=== PATIENT | female | born 1950 | race Caucasian/White ===

== ENCOUNTER → 2016-11-20 16:37 | Outpatient (CLI) | payer MEDICARE ==
[2012-07-09 20:28] VITALS: BMI 22.4
[~2016-11-20 16:37] MED LIST: BAYER ASPIRIN325 MG PO; LIPITOR40 MG PO; LISINOPRIL10 MG PO; NORVASC10 MG PO; PROZAC20 MG PO
[2016-11-25 11:19] VITALS: BMI 23.3
== END | disposition home or self-care (01) ==
LOC: D.MAMMO 08:15
DX: Z12.31 Encounter for screening mammogram for malignant neoplasm of breast (principal)

== ENCOUNTER 2016-11-25 09:27 | Day surgery (SDC) | payer MEDICARE ==
[~2016-11-25] VITALS: Ht 167.6 cm; Wt 65.5 kg
[2016-11-25] MEDS ORDERED: NORVASC10 MG PO (11:14)
[2016-11-25] MEDS ORDERED: LISINOPRIL10 MG PO (11:14)
[2016-11-25] MEDS ORDERED: PROZAC20 MG PO (11:14)
[2016-11-25] MEDS ORDERED: LIPITOR40 MG PO (11:14)
[2016-11-25] MEDS ORDERED: BAYER ASPIRIN325 MG PO (11:15)
[2016-11-25 11:19] VITALS: BP 119/56; Ht 167.6 cm; Wt 65.5 kg
[2016-11-25 12:14] LABS: BASOPHILS 0.1 % (0.0-2.0); EOSINOPHILS 0.6 % (0-7); HEMATOCRIT 39.2 % (36.0-48.0); HEMOGLOBIN 13.3 g/dL (12-16); LYMPHOCYTES 40.8 % (15-50); MCH 31.4 pg (26.0-34.0); MCHC 33.9 g/dL (31.0-37.0); MCV 92.7 fL (80.0-100.0); MEAN PLATELET VOLUME 11.6 fL (7.4-10.4); MONOCYTES 5.2 % (2-11); NEUTROPHILS 53.3 % (40-80); PLATELET COUNT 211 10x3/uL (130-400); RBC 4.23 10x6/uL (4.00-5.40); RDW 13.7 % (11.5-14.5)
[2016-11-25 12:28] LABS: ANION GAP 16.6 mmol/L (8-16); CALCIUM 9.3 mg/dL (8.5-10.1); POTASSIUM - SERUM 4.6 mmol/L (3.5-5.1)
--- NOTE | 2016-11-25 15:18 | NUR ---
1500 UP TO BATHROOM , IV DC WITH CATHER TIP INTACT
--- NOTE | 2016-12-05 09:40 | OP ---
PATIENT NAME: JOHNNY VALENCIA MEDICAL RECORD: [id number] :46 LOCATION:D.OPS ADMISSION DATE: SURGEON: NADEEM COTTER MD DATE OF OPERATION: 11/25/2016 PREOPERATIVE DIAGNOSIS: Desires screening colonoscopy. POSTOPERATIVE DIAGNOSES: Desires screening colonoscopy with 3 sessile polyps ranging in size from 9 mm-1.2 cm. PROCEDURES: 1. Total colonoscopy to cecum. 2. Hot biopsy forceps polypectomy times 3. SURGEON: Nadeem Cotter MD ASSISTANT CHIEF NURSING OFFICER: None. BLOOD LOSS: Minimal. ANESTHESIA: IV sedation. COMPLICATIONS: None. The risks, possible complications and alternatives to procedure were explained to the patient. She elects to proceed. ENDOSCOPIC COURSE: The patient was conveyed to the endoscopy suite electively on 11/25/2016. IV sedation was induced by the anesthesia staff. The patient was placed in the Brannon position. A digital rectal examination was performed. A colonoscope was inserted through the anus. It was easily advanced to the cecum. Upon withdrawal, I irrigated and aspirated extensively. Three polyps were removed. One of these was a periappendiceal polyp. These were all removed utilizing the hot biopsy forceps polypectomy technique. I dragged the folds. The pullback was greater than a 14-minute pullback. A retroflexed view was obtained in the rectum. I then unretroflexed the scope and removed it under direct vision. I will see the patient in my office in 2-3 weeks. One of these unlikely is going to be an adenomatous polyp and I would plan for a re-colonoscopy again in a year as a surveillance colonoscopy and then every 3 years. TRANSINT:[id number] Voice Confirmation ID: [id number] DOCUMENT ID: [id number] ANDEEM COTTER MD at 0940 CC: ALCIDES ANDERSON MD [id number] DICTATION DATE: 11/25/16 1615 MACHINE OPERATOR FARMWORKER: 11/25/168 [facility] 11/25/[address] [address]
--- NOTE | 2016-12-05 09:40 | HP ---
PATIENT: JOHNNY VALENCIA MEDICAL RECORD: [id number] ACCOUNT: [id number] [facility] ADMISSION DATE: 11/25/16 HISTORY AND PHYSICAL EXAMINATION CHIEF COMPLAINT: Desires screening colonoscopy. HISTORY OF PRESENT ILLNESS: The patient has no abdominal pain. No rectal bleeding. She desires screening colonoscopy. ALLERGIES: No known drug allergies. HOME MEDICATIONS: Prozac, lisinopril, Lipitor, aspirin, and Norvasc. SOCIAL HISTORY: Smoker. PAST MEDICAL AND SURGICAL HISTORY: COPD, hypertension, CVA, gastroesophageal reflux, bilateral tubal ligation and skin cancer removal. PHYSICAL EXAMINATION: GENERAL: The patient does not appear acutely ill. She does not appear chronically ill. VITAL SIGNS: Reviewed. HEAD: External ears appear normal. EYES: Extraocular movements are intact. NECK: Trachea is midline. CHEST: No intercostal retractions. PULMONARY: Nonlabored, no stridor. ABDOMEN: Nontender. IMPRESSION: Desires screening colonoscopy. PLAN: Screening colonoscopy. TRANSINT:[id number] Voice Confirmation ID: [id number] DOCUMENT ID: [id number] KYLAH COTTER MD at 0940 CC: ALCIDES ANDERSON MD [id number] DICTATION DATE: 11/25/16 1313 CODING CONSULTANT: 11/25/16 1441 [facility] 11/25/16 [address] [place] [address]
== END 2016-11-25 15:25 | disposition home or self-care (01) ==
LOC: D.OPS 09:27
PROVIDERS: Anesthesiology
DX: Z12.11 Encounter for screening for malignant neoplasm of colon (principal); D12.3 Benign neoplasm of transverse colon; D36.7 Benign neoplasm of other specified sites; K63.5 Polyp of colon; Z79.82 Long term (current) use of aspirin; Z79.899 Other long term (current) drug therapy; F17.200 Nicotine dependence, unspecified, uncomplicated; J44.9 Chronic obstructive pulmonary disease, unspecified; I10 Essential (primary) hypertension; Z86.73 Personal history of transient ischemic attack (TIA), and cerebral infarction without residual deficits; K21.9 Gastro-esophageal reflux disease without esophagitis

== ENCOUNTER → 2016-12-30 16:11 | Outpatient (CLI) | payer MEDICARE ==
[2016-11-25 11:19] VITALS: BMI 23.3
== END | disposition home or self-care (01) ==
LOC: D.MAMMO 09:00
DX: R92.8 Other abnormal and inconclusive findings on diagnostic imaging of breast (principal)

== ENCOUNTER → 2018-01-19 16:44 | Outpatient (CLI) | payer MEDICARE ==
[2016-11-25 11:19] VITALS: BMI 23.3
== END | disposition home or self-care (01) ==
LOC: D.MAMMO 08:15
DX: Z12.31 Encounter for screening mammogram for malignant neoplasm of breast (principal)

== ENCOUNTER 2019-02-15 19:00 | Outpatient (CLI) | payer MEDICARE ==
[2016-11-25 11:19] VITALS: BMI 23.3
== END 2019-02-15 23:59 | disposition home or self-care (01) ==
LOC: D.MAMMO 19:00
PROVIDERS: ATTEND Clinical Nurse Specialist Family Health
DX: Z12.31 Encounter for screening mammogram for malignant neoplasm of breast (principal)

== ENCOUNTER 2019-03-22 06:34 | Day surgery (SDC) | payer MEDICARE ==
[~2019-03-22] VITALS: Ht 167.6 cm; Wt 65.9 kg
[2019-03-22 07:06] LABS: BASOPHILS 0.2 % (0-2); EOSINOPHILS 1.5 % (0-7); HEMATOCRIT 39.3 % (36.0-48.0); HEMOGLOBIN 13.4 g/dL (12-16); IMMATURE GRANULOCYTES 0.1 % (0-5); LYMPHOCYTES 46.1 % (15-50); MCH 32.1 pg (26.0-34.0); MCHC 34.1 g/dL (31.0-37.0); MEAN PLATELET VOLUME 10.5 fL (7.4-10.4); MONOCYTES 7.8 % (2-11); NEUTROPHILS 44.3 % (40-80); RBC 4.18 10x6/uL (4.00-5.40); RDW 13.9 % (11.5-14.5); WBC 8.1 10x3/uL (4.8-10.8)
[2019-03-22 07:23] LABS: ANION GAP 17.6 mmol/L (8-16); CALCIUM 9.7 mg/dL (8.5-10.1); CARBON DIOXIDE 21.9 mmol/L (21.0-32.0); POTASSIUM - SERUM 4.5 mmol/L (3.5-5.1)
[2019-03-22 07:28] VITALS: BP 130/52; Ht 167.6 cm; Wt 65.9 kg
[2019-03-22 07:28] LABS: PLATELET COUNT 271 10x3/uL (130-400)
[2019-03-22] MEDS ORDERED: NIASPAN500 MG PO (07:35)
--- NOTE | 2019-03-22 11:05 | NUR ---
[address] COTTER. PROCEDURE FINDINGS DISCUSSED WITH PATIENT & . Rafael STEVENSON R.N.
--- NOTE | 2019-03-22 11:27 | NUR ---
1125 SERVED FULL LIQUID DIET. NO COMPLAINTS OF NAUSEA. Rafael STEVENSON R.N.
--- NOTE | 2019-03-22 12:51 | NUR ---
1210 UP TO BATHROOM. VOIDED. IV DC'ED WITH CATH INTACT BY Maurice SNOW R.N. PT DRESSING. Rafael STEVENSON R.N. 1215 DRESSED. AWAKE & ALERT. GIVEN DISCHARGE INFORMAION INCLUDING: RX: NEXIUM, SHEET LISTING NSAIDS TO AVOID, MED REC, GERD REFLUS CIET SHEET, SHEET LISSTING FOODS HIGH IN [place], & [facility] POST ENDOSCOPY D/C SHEET. TO PRIVATE CAR PER WHEELCHAIR BY VOLUNTEER. HOME WITH MALE GROUND EQUIPMENT MECHANIC. Rafael STEVENSON R.N.
--- NOTE | 2019-03-22 13:55 | OP ---
PATIENT NAME: JOHNNY VALENCIA MEDICAL RECORD: [id number] :46 LOCATION:D.OPS ADMISSION DATE: SURGEON: NADEEM COTTER MD DATE OF OPERATION: 03/22/2019 PREOPERATIVE DIAGNOSES: 1. Epigastric abdominal pain. 2. History of colon polyps, in need of surveillance colonoscopy. POSTOPERATIVE DIAGNOSES: 1. Epigastric abdominal pain. 2. History of colon polyps, in need of surveillance colonoscopy. 3. Several bleeding fundal and antral ulcers in the stomach. 4. Numerous gastric erosions in the antrum. 5. Moderate duodenitis with erosions. 6. Rule out Molina esophagus. 7. Moderately sized hiatal hernia. 8. Two colon polyps, both sessile, both less than 8 mm in size. PROCEDURES: 1. Esophagogastroduodenoscopy with antral and distal esophageal biopsies. 2. Total colonoscopy to cecum. 3. Hot biopsy forceps polypectomies times 2. SURGEON: Nadeem Cotter MD OTOLOGIST: None. BLOOD LOSS: Minimal. ANESTHESIA: IV sedation. COMPLICATIONS: None. The risks, possible complications, and alternatives to the procedure were explained to the patient. She elects to proceed. Discussion specifically included bleeding. The patient does take aspirin, but I think she can resume her aspirin after the procedure. ENDOSCOPIC COURSE: The patient was conveyed to the endoscopy suite electively on 03/22/2019. IV sedation was induced by the anesthesia staff. A bite block was inserted. A gastroscope was inserted into the mouth. It was advanced easily into the hypopharynx. The esophagus was easily intubated as were the stomach and duodenum. Upon withdrawal, retroflexed and angulus views were obtained. Antral biopsies were obtained. Distal esophageal biopsies were obtained. The patient was then turned 180 degrees. She was placed in the Brannon position. A digital rectal examination was performed. A colonoscope was inserted through the anus. It was easily advanced to the cecum. I slowly withdrew the endoscope. I irrigated and aspirated extensively. A combination of normal imaging and narrow band imaging were utilized. The pullback was greater than 18-minute pullback. Two hot biopsy forceps polypectomies were performed. A OPERATIVE REPORT [id number] JOHNNY VALENCIA retroflexed view was obtained in the rectum. I then unretroflexed the scope and removed it under direct vision. I will see the patient socially as I date her daughter and so there is no need for her to follow up with me in the office. I will be able to convey the pathology findings to her directly. TRANSINT:[id number] Voice Confirmation ID: [id number] DOCUMENT ID: [id number] NADEEM COTTER MD at 1355 CC: ALCIDES ANDERSON [id number] DICTATION DATE: 03/22/19 1234 EXCHANGE TELLER: 03/22/19 1246 [facility] 03/22/19 [address] [place] [address]
--- NOTE | 2019-03-22 13:55 | HP ---
PATIENT: JOHNNY VALENCIA MEDICAL RECORD: [id number] ACCOUNT: [id number] [facility] : 46 ADMISSION DATE: 03/22/19 PCP: ALCIDES ANDERSON MD HISTORY AND PHYSICAL EXAMINATION PRINCIPAL DIAGNOSIS: History of colon polyps. HISTORY OF PRESENT ILLNESS: The patient has a history of colon polyps including an appendiceal orifice, tubular adenoma, and a hepatic flexure tubular adenoma. She also has epigastric abdominal pain. I am going to plan for an EGD as well as a surveillance colonoscopy. No dysphagia. No odynophagia. SOCIAL HISTORY: She is a smoker. PAST MEDICAL AND SURGICAL HISTORY: COPD, tubal ligation, hypertension, history of CVA, history of gastroesophageal reflux, history of skin cancer removal. ALLERGIES: No known drug allergies. PHYSICAL EXAMINATION: GENERAL: The patient does not appear acutely ill. She does not appear chronically ill. VITAL SIGNS: Reviewed. EARS: External ears appear normal. EYES: Extraocular movements are intact. NECK: Trachea is midline. CHEST: No intercostal retraction. IMPRESSION: 1. Epigastric abdominal pain. 2. History of colon polyps, in need of surveillance colonoscopy. PLAN: EGD and colonoscopy. TRANSINT:[id number] Voice Confirmation ID: [id number] DOCUMENT ID: [id number] KYLAH COTTER MD at 1355 CC: ALCIDES ANDERSON [id number] DICTATION DATE: 03/22/19 0939 REAL ESTATE ASSET MANAGER: 03/22/19 0950 [facility] 03/22/19 [id number] [place] [address]
== END 2019-03-22 12:15 | disposition home or self-care (01) ==
LOC: D.OPS 06:34
PROVIDERS: Anesthesiology; ATTEND Surgery
DX: Z12.11 Encounter for screening for malignant neoplasm of colon (principal); K25.4 Chronic or unspecified gastric ulcer with hemorrhage; K29.80 Duodenitis without bleeding; K44.9 Diaphragmatic hernia without obstruction or gangrene; K25.9 Gastric ulcer, unspecified as acute or chronic, without hemorrhage or perforation; K63.5 Polyp of colon; Z86.010 Personal history of colon polyps; F17.200 Nicotine dependence, unspecified, uncomplicated; J44.9 Chronic obstructive pulmonary disease, unspecified; I10 Essential (primary) hypertension; K21.9 Gastro-esophageal reflux disease without esophagitis; Z86.73 Personal history of transient ischemic attack (TIA), and cerebral infarction without residual deficits; Z01.812 Encounter for preprocedural laboratory examination

== ENCOUNTER 2019-05-18 10:05 | Emergency (ER) | payer MEDICARE ==
[~2019-05-18] VITALS: Ht 167.6 cm; Wt 65.9 kg
[~2019-05-18 10:05] MED LIST changes: +NIASPAN500 MG PO
[2019-05-18 10:09] VITALS: Ht 167.6 cm; Wt 65.9 kg
[2019-05-18] MEDS ORDERED: NEXIUM20 MG PO (10:11)
[2019-05-18 11:11] LABS: ALBUMIN 3.5 g/dL (3.4-5.0); ANION GAP 15.6 mmol/L (8-16); BILIRUBIN - TOTAL 0.28 mg/dL (0.2-1.3); CALCIUM 9.6 mg/dL (8.5-10.1); CARBON DIOXIDE 21.5 mmol/L (21.0-32.0); POTASSIUM - SERUM 4.1 mmol/L (3.5-5.1); PROTEIN - SERUM 7.4 g/dL (6.4-8.2)
[2019-05-18 11:14] LABS: APPEARANCE CLEAR (CLEAR); BILIRUBIN NEGATIVE (NEGATIVE); COLOR YELLOW (YELLOW); GLUCOSE NEGATIVE (NEGATIVE); KETONE NEGATIVE (NEGATIVE); NITRITE NEGATIVE (NEGATIVE); PROTEIN NEGATIVE (NEGATIVE); UROBILINOGEN NORMAL (NORMAL)
[2019-05-18 11:19] LABS: BASOPHILS 0.3 % (0-2); EOSINOPHILS 1.1 % (0-7); HEMATOCRIT 37.8 % (36.0-48.0); HEMOGLOBIN 13.2 g/dL (12-16); IMMATURE GRANULOCYTES 0.1 % (0-5); LYMPHOCYTES 49.5 % (15-50); MCHC 34.9 g/dL (31.0-37.0); MCV 91.5 fL (80.0-100.0); MEAN PLATELET VOLUME 11.4 fL (7.4-10.4); MONOCYTES 6.9 % (2-11); NEUTROPHILS 42.1 % (40-80); RBC 4.13 10x6/uL (4.00-5.40); RDW 14.6 % (11.5-14.5); WBC 7.4 10x3/uL (4.8-10.8)
[2019-05-18 11:21] LABS: PLATELET COUNT 204 10x3/uL (130-400)
[2019-05-18 12:08] VITALS: BP 161/73
== END 2019-05-18 11:55 | disposition home or self-care (01) ==
LOC: D.ER 10:05
PROVIDERS: Emergency Medicine
DX: R42 Dizziness and giddiness (principal)

== ENCOUNTER → 2019-06-16 09:02 | Outpatient (CLI) | payer MEDICARE ==
[2019-05-18 10:09] VITALS: BMI 23.4
[~2019-06-16 09:02] MED LIST changes: +NEXIUM20 MG PO; +PLAVIX75 MG PO
== END | disposition home or self-care (01) ==
LOC: D.HCCARDIO 09:02
PROVIDERS: ATTEND Internal Medicine Cardiovascular Disease
DX: R06.02 Shortness of breath (principal)

== ENCOUNTER 2019-07-07 07:03 | Outpatient (CLI) | payer MEDICARE ==
[~2019-07-07] VITALS: Ht 160 cm; Wt 65.9 kg
--- NOTE | ~2019-07-07 | HEMODYNAMI ---
PATIENT:JOHNNY VALENCIA MEDICAL RECORD: [id number] : 46 LOCATION:[facility] ADMISSION DATE: 07/07/19 Generatedon:07/07/201910:01 Patient name: JOHNNY VALENCIA Patient #: [id number] SSN: DO B: 1950 Date of study: 07/07/2019 Page: Of Hemodynamic Procedure Report Patient Data Patient Demographics Procedure consent was obtained First Name: JOHNNY Gender: Female Last Name: ERIK : 1950 Middle Initial: YSABEL Age: 68 year(s) Patient #: [id number] Race: Additional ID: [id number] Contact details Address: [address] [place] [address] State: [place] City: [place] Zip code: [address] Past Medical History Allergies: No known allergies Admission Admission Data Admission Date: 07/07/2019 Admission Time: 7:03 Arrival Date: 07/07/2019 Arrival Time: 0:00 Admit Source: Other Insurance Payor: Medicare Height (in.): 62.99 BSA: 1.69 (m2) Height (cm.): 160 BMI: 25.78 (kg/m2) Weight (lbs.): 145.51 Weight (kg.): 66 Lab Results Lab Result Date: 07/07/2019 Lab Result Time: 0:00 Biochemistry Name Units Result Min Max BUN mg/dl 29 --(----)-* 7 18 Creatinine mg/dl 1.1 --(--*-)-- 0.6 1.3 eGFR ml/min 52 *-(----)-- 90 120 NONAFRICAN CBC Name Units Result Min Max Hematocrit % 42.1 --(*---)-- 42 54 Hemoglobin g/dl 14.1 --(*---)-- 13.5 17.5 Procedure Procedure Types Cath Procedure Diagnostic Procedure [facility] w/Coronaries Aortic Root Angiography Sedation Charges Moderate Sedation up to 30 minutes Procedure Description Procedure Date Procedure Date: 07/07/2019 Procedure Start Time: 9:24 Procedure End Time: 9:57 Procedure Staff Name Function Ganga Soto MD Performing Physician Sue Luke RT Monitor Julianna Vivar RT Scrub Tova Bess RN Nurse Procedure Data Cath Procedure Fluoroscopy Diagnostic fluoroscopy Total fluoroscopy Time: 4.8 time: 4.8 min min Diagnostic fluoroscopy Total fluoroscopy dose: 629 dose: 629 mGy mGy Contrast Material Contrast Material Type Amount (ml) Isovue 300 104 Entry Location Entry Primary Successful Side Size Upsize Upsize Entry Closure Succes sful Closure Location (Fr) 1 (Fr) 2 (Fr) Remarks Device Remarks Femoral Right 5 Fr Exoseal artery Estimated blood loss: 5 ml Diagnostic catheters Device Type Used For End Catheter Placement MULTIPACK JL 4.0 5Fr Procedure catheter MULTIPACK 3DRC 5Fr Procedure catheter MULTIPACK Pigtail 5 Fr Procedure catheter DIAGNOSTIC IM 5Fr Procedure catheter ([id number]) Procedure Complications No complications Procedure Medications Medication Administration Route Dosage Oxygen etCO2 Nasal cannula 2 l/min Lidocaine 2% added to field 20 Heparin Flush Bag added to field 2 bags (1000units/500ml NS) 0.9% NaCl I.V. 100 ml/hr Versed I.V. 1 mg Fentanyl I.V. 50 mcg Versed I.V. 1 mg Fentanyl I.V. 50 mcg Radial Cocktail added to field 1 syringe (Verapamil 2mg/Nitro 400mcg/Heparin 1500units) Hemodynamics Rest BSA: 1.69 (m2) HGB: 14.1 (g/dl) O2 Consumption: Estimated: 145.11 (ml/min) O2 Co nsumption indexed: Estimated:85.86 (ml/min/m) Heart Rate: 53 (bpm) Pressure Samples Time Site Value (mmHg) Purpose Heart Use Rate(bpm) 9:45 LV 110/-1,14 Snapshot 59 9:45 LV 128/-3,20 Snapshot 63 9:46 AO 102/39(61) Pullback 61 9:46 LV 118/0,12 Pullback 61 Gradients Valve Time Site 1 Site 2 Mean SEP/DFP Peak To Heart Use (mmHg) (sec/min) Peak Rate (mmHg) (bpm) Aortic 9:46 LV AO 13 20 16 61 118/0,12 102/39(61) Calculations Valve P-P Mean Valve Index Valve Source Name Gradient Area Flow (cm2) Aortic 16 13 16 13 Snapshots Pre Cath Intra NCS Post Cath Vital Signs Time Heart Resp SPO2 etCO2 NIBP (mmHg) Rhythm Pain Sedation Rate (ipm) (%) (mmHg) Status Level (bpm) 9:13:09 53 30 99 31 Measuring NSR 0 (11) 10(A) , No pain 9:13:26 51 17 98 30.2 151/67(120) NSR 0 (11) 10(A) , No pain 9:17:42 51 10 96 32.5 105/50(83) NSR 0 (11) 10(A) , No pain 9:21:54 52 10 96 34 97/49(78) NSR 0 (11) 10(A) , No pain 9:26:02 50 12 94 33.2 101/52(75) NSR 0 (11) 9(A) , No pain 9:30:12 52 12 94 34 101/50(83) NSR 0 (11) 9(A) , No pain 9:34:21 50 13 93 34 105/56(80) NSR 0 (11) 9(A) , No pain 9:38:31 51 12 92 34 104/54(73) NSR 0 (11) 9(A) , No pain 9:42:43 57 10 94 35.5 112/53(94) NSR 0 (11) 9(A) , No pain 9:46:57 63 14 94 36.3 108/55(92) NSR 0 (11) 10(A) , No pain 9:51:11 64 12 94 35.5 103/47(80) NSR 0 (11) 10(A) , No pain 9:55:23 65 8 94 0 113/51(87) NSR 0 (11) 10(A) , No pain Medications Time Medication Route Dose Verified Delivered Reason Notes Effectiveness by by 9:11:48 Oxygen etCO2 2 l/min Ganga Buffie used for Nasal Charles Bess RN procedure cannula 9:11:55 Lidocaine 2% added 20ml Ganga Ganga for local to vial Charles Soto MD anesthetic field 9:12:01 Heparin Flush added 2 bags Ganga Ganga used for Bag to Charles Soto MD procedure (1000units/500ml field NS) 9:12:10 0.9% NaCl I.V. 100 Ganga Buffie Per ml/hr Charles Bess RN physician 9:14:35 Radial Cocktail added 1 Ganga Buffie not used, (Verapamil to syringe Charles Bess RN femoral 2mg/Nitro field access 400mcg/Heparin obtained. 1500units) 9:17:10 Versed I.V. 1 mg Ganga Buffie for Charles Bess RN sedation 9:17:15 Fentanyl I.V. 50 mcg Ganga Buffie for Charles Bess RN sedation 9:22:09 Versed I.V. 1 mg Ganga Buffie for Charles Bess RN sedation 9:22:13 Fentanyl I.V. 50 mcg Ganga Buffie for Charles Bess RN sedation Procedure Log Time Note 8:46:33 Informed consent obtained and on chart 8:46:58 Procedure Status Elective Heart Cath (OP). 8:47:01 Julianna Vivar RT(R) sent for patient. Start room use. 8:47:02 Time tracking: Regular hours (M-F 7:00 - 5:00) 8:47:05 Plan of Care:Hemodynamics will remain stable., Cardiac rhythm will remain stable., Comfort level will be maintained., Respiratory function will remain adequate., Patient/ family verbilizes understanding of procedure., Procedure tolerated without complication., Recovers from procedure without complications.. 8:47:13 H&P Date Dictated: 06/07/2019 Within 30 days and on chart., H&P Addendum completed by physician on day of procedure. (MUST COMPLETE FOR ALL OUTPATIENTS). 8:53:09 Patient allergic to No known allergies 8:54:01 Patient Weight : 145.51 lbs 8:54:10 Arrival Date: 07/07/2019 12:00:00 AM 8:55:26 Lab Result : BUN 29 mg/dl 8:55:26 Lab Result : eGFR NONAFRICAN 52 ml/min 8:55: Lab Result : Creatinine 1.1 mg/dl 8:55: Lab Result : Hemoglobin 14.1 g/dl 8:55:26 Lab Result : Hematocrit 42.1 % 9:01:15 Risk of Mortality: <.1 9:01:17 Risk of blood transfusion: .6 9:01:22 Risk of ZACKARY: 1 9:01:37 Patient received from Pre/Post Procedure Room to [facility] Alert and oriented. Tansferred to table in Supine position. 9::38 Warm blankets applied, and janie hugger turned on for patient comfort. 9::39 Correct patient and procedure confirmed by team. 9::39 ECG and BP/O2 sat monitors applied to patient. 9:11:20 Vital chart was started 9:: Baseline sample Acquired. ::24 Rhythm: sinus bradycardia :: Full Disclosure recording started :: Pre-procedure instructions explained to patient. :: Pre-op teaching completed and patient verbalized understanding. 9:11:30 Family in patients room. 9::31 Patient NPO since Midnight. 9:11:33 Is the patient allergic to Iodine/contrast media? No. 9::39 Is patient on blood thinner?No 9:11:45 ACC The patient was administered the following blood thiners within the last 24 hours: ACCAspirin 9:11:46 Patient diabetic? No. 9:11:48 Oxygen 2 l/min etCO2 Nasal cannula was administered by Tova Bess RN; used for procedure; Verbal order read back and verified. 9:11:51 Patient not . Patient is over age 55. 9:11:55 Lidocaine 2% 20ml vial added to field was administered by Ganga Soto MD; for local anesthetic; Verbal order read back and verified. 9:11:58 Previous problem with sedation/anesthesia? No ? 9:11:59 Snore? Yes 9:12:00 Sleep apnea? No 9:12:01 Heparin Flush Bag (1000units/500ml NS) 2 bags added to field was administered by Ganga Soto MD; used for procedure; Verbal order read back and verified. 9:12:01 Deviated septum? No 9:12:02 Opens mouth fully? Yes 9:12:08 Sticks out tongue? Yes 9:12:10 0.9% NaCl 100 ml/hr I.V. was administered by Tova Bess RN; Per physician; Verbal order read back and verified. 9:12:12 Airway obstruction? Yes COPD 9:12:19 Dentures? No ? 9:12:26 Pre procedure: right dorsailis pedis pulse 1+ Palpable, but thready & weak; easily obliterated 9:12:29 Modified Gaetano's test Ulnar < 7 seconds 9:12:31 Patient pain scale 0/10 ?. 9:12:40 IV patent on arrival in left hand with 0.9% NaCl at [facility]. 9:12:44 Lab results completed and on chart. 9:13:09 Right Radial & Right Groin area was prepped with chlora-prep and draped in sterile fashion 9:13:09 Alarms reviewed by R. N. 9:13:10 Sharps counted by scrub and verified by R.N. 9:13:14 Use device set Radial Dx or PCI 9:13:15 ACIST Syringe ([id number]) opened to sterile field. 9:13:16 Bag Decanter (2002S) opened to sterile field. 9:13:16 ACIST Hand Control (89686) opened to sterile field. 9:13:16 ACIST Manifold (65338) opened to sterile field. 9:13:17 Tegaderm 4 x 4 (1626W) opened to sterile field. 9:13:18 Medline Cath Pack ([id number]) opened to sterile field. 9:13:20 MBraBenjamin's Desk Wrist Support ([id number]) opened to sterile field. 9:13:20 NEEDLE Cook 21G 4cm Radial ([id number]) opened to sterile field. 9:13:23 SHEATH 6FR RAIN ([id number]) opened to sterile field. 9:14:35 Radial Cocktail (Verapamil 2mg/Nitro 400mcg/Heparin 1500units) 1 syringe added to field was administered by Tova Bess RN; ; not used, femoral access obtained. Verbal order read back and verified. 9:16:02 Patient Height : 62.99 inches 9:16:05 Admit Source: Other 9:16:13 Insurance Payor : Medicare 9:16:45 --------ALL STOP TIME OUT------ 9:16:45 Final Timeout: patient, procedure, and site verified with staff and physician. All members of the team are in agreement. 9:16:45 Final Timeout: patient, procedure, and site verified with staff and physician. All members of the team are in agreement. 9:16:47 Right Radial & Right Groin site verified by team. 9:16:51 Fire Safety Assessment: A--An alcohol-based skin anteseptic being used preoperatively., C--Open oxygen or nitrous oxide is being used., D--An ESU, laser, or fiber-optic light is being used. 9:16:54 Physical assessment completed. ASA score P 3 - A patient with severe systemic disease as per Ganga Soto MD. 9:16:57 2) 60-89 Mildly reduced kidney function, and other findings (as for stage 1) point to kidney disease. 9:17:00 Maximum allowable contrast dose (3.7 X eGFR X 0.75)144 ml. 9:17:04 Sedation plan: IV Moderate Sedation Medication:Versed, Fentanyl 9:17:10 Versed 1 mg I.V. was administered by Tova Bess RN; for sedation; Verbal order read back and verified. 9:17:15 Fentanyl 50 mcg I.V. was administered by Tova Bess RN; for sedation; Verbal order read back and verified. 9:18:29 ACC Patient presents with Stable Angina CCS Anginal Class 2--Slight limitation of ordinary activity. 9:19:06 ACCPatient has been prescribed/administered the following anti-anginal medication within the last 2 weeks: ANTOINE-Inhibitor 9:20:33 Stress Test: yes; abnormal ANTERIOR, APICAL AND INFERIOR 9:20:46 Zero performed for pressure channel P1 9:22:09 Versed 1 mg I.V. was administered by Tova Bess RN; for sedation; Verbal order read back and verified. 9:22:13 Fentanyl 50 mcg I.V. was administered by Tova Bess RN; for sedation; Verbal order read back and verified. 9:24:37 Procedure started. 9:24:46 Local anesthetic to right radial artery with Lidocaine 2% by Ganga Soto MD.INITIAL ACCESS ONLY 9:29:38 UNABLE TO GAIN RADIAL ACCESS. WILL PROCEED TO GROIN 9:29:44 Local anesthetic to right femoral artery with Lidocaine 2% by Ganga Soto MD.ADDITIONAL ACCESS 9:29:51 SHEATH 5FR [place] ([id number]) opened to sterile field. 9:30:04 Use device set Multipack Set 9:30:05 DIAGNOSTIC Multipack 5Fr catheter set ([id number]) opened to sterile field. 9:37:48 A 5 Fr sheath was inserted into the Right Femoral artery 9:38:44 A MULTIPACK JL 4.0 5Fr catheter was advanced over the wire and used for Procedure. 9:39:46 LCA angiography performed. 9:41:37 Catheter exchanged over wire. 9:41:46 A MULTIPACK 3DRC 5Fr catheter was advanced over the wire and used for Procedure. 9:43:15 RCA angiography performed. 9:43:28 ACCDominant side:Co-Dominant 9:43:30 Catheter exchanged over wire. 9:44:26 A MULTIPACK Pigtail 5 Fr catheter was advanced over the wire and used for Procedure. 9:44:57 LV gram done using MAY 9:45:05 Injector settings: Ml/sec: 10, Volume: 20, 9:45:31 LV hemodynamics recorded. 9:45:46 EF : 55 % 9:47:00 Aortic Root visualized 9:47:21 Catheter exchanged over wire. 9:47:33 A DIAGNOSTIC IM 5Fr catheter ([id number]) was advanced over the wire and used for Procedure. 9:50:26 GRULLON angiography performed. 9:50:57 Catheter removed. 9:51:04 EXOSEAL 5Fr (EX500) opened to sterile field. 9:51:47 Sheath removed intact; hemostasis achieved with Exoseal to the Right Femoral artery. 9:51:53 Fluoroscopy time 04.80 minutes. 9:51:57 Fluoroscopy dose: 629 mGy 9:51:57 Flurop Dose total: 629 9:52:03 Dose Area Product 82009 mGy/cm. 9:52:13 Contrast amount:Isovue 300 104ml. 9:52:18 Maximum allowable dose exceeded? No. 9:52:20 Maximum allowable dose exceeded? No. 9:52:23 Procedure ended.(Physican Out) 9:52:39 Sharps counted by scrub and verified by R.N. 9:53:15 Post-op/insertion site Right Femoral artery dressed using a 4 x 4 and Tegaderm. 9:53:18 Post-procedure physical assessment completed. ASA score P 3 - A patient with severe systemic disease as per Ganga Soto MD. 9:53:40 Post procedure rhythm: sinus rhythm 9:53:43 Estimated blood loss: 5 ml 9:53:44 Post procedure instruction explained to patient.Patient verbalizes understanding. 9:53:45 Patient needs reinforcement of post procedure teaching. 9:54:49 Procedure type changed to Cath procedure, Diagnostic procedure, LHC, [facility] w/Coronaries, Aortic Root Angiography, Sedation Charges, Moderate Sedation up to 30 minutes 9:57:30 Procedure and supply charges have been captured, reviewed, submitted and are correct. 9:57:34 Procedure Complication : No complications 9:57:36 Vital chart was stopped 9:57:39 [facility] Findings: MVD- CABG consult 9:57:42 Operative report dictated upon procedure completion. 9:57:42 See physician's report for complete and final results. 9:57:45 Report given to Pre/Post Procedure Room. 9:57:50 Patient transfered to Pre/Post Procedure Room with Bed. 9:57:51 Procedure ended. 9:57:51 Full Disclosure recording stopped 9:57:56 End room use (Document Last) 9:59:21 End room use (Document Last) 9:59:55 End room use (Document Last) Device Usage Item Name Manufacture Quantity Catalog Hospital Part Current Minima l Lot# / Number Charge Number Stock Stock Serial# Code ACIST Acist 1 16411 499147 428023 604335 20 Syringe Medical (82326) Systems Inc Bag Microtek 1 2001S 911344 46085 839832 5 Decanter Medical Inc. (2001S) ACIST Hand Acist 1 30234 650529 846462 812699 5 Control Medical (22306) Systems Inc ACIST Acist 1 54553 956676 542872 840682 5 Manifold Medical (09226) Systems Inc Tegaderm 4 3M 1 1626W 604730 463199 034705 5 x 4 (1626W) Medline Medline 1 [id number] 611565 21971 719975 5 Cath Pack ([id number]) MBrace Advanced 1 140-0250-00 739257 08704 911067 5 Wrist Vascular Support Dynamics ([id number]) NEEDLE Cook Cook Medical 1 N16974 766343 872160 252904 5 21G 4cm Radial (U75538) SHEATH 6FR Cardinal 1 [id number] 200774 1357251 519748 5 [facility] Health (3565316) SHEATH 5FR Terumo 1 [id number] 379333 519506 839399 5 [place] (FXH101) DIAGNOSTIC Cardinal 1 TC6564 535903 56608 555885 30 Multipack Health 5Fr catheter set (UX5520) MULTIPACK Cardinal 1 168684 5 JL 4.0 5Fr Health catheter MULTIPACK Cardinal 1 123625 5 3DRC 5Fr Health catheter MULTIPACK Cardinal 1 415078 5 Pigtail 5 Health Fr catheter DIAGNOSTIC Cardinal 1 [id number] 271809 609388 943511 5 IM 5Fr Health catheter (433468G) EXOSEAL 5Fr Cardinal 1 EX500 329643 971450 510606 10 (EX500) Health Signature Audit [place] Stage Time Signature Unsigned Intra-Procedure 07/07/2019 Sue Luke 9:59:22 AM RT(R) Intra-Procedure 07/07/2019 Tova Bess RN 9:59:55 AM Intra-Procedure 07/07/2019 Gagna Soto MD 10:01:20 AM [facility] [address] [place] [address]
[~2019-07-07 07:03] MED LIST changes: -PLAVIX75 MG PO
[2019-07-07 07:35] VITALS: BP 138/90; BMI 25.7
[2019-07-07 07:55] LABS: HEMATOCRIT 42.1 % (36.0-48.0); HEMOGLOBIN 14.1 g/dL (12-16); MCH 32.3 pg (26.0-34.0); MCHC 33.5 g/dL (31.0-37.0); MCV 96.3 fL (80.0-100.0); MEAN PLATELET VOLUME 10.7 fL (7.4-10.4); RBC 4.37 10x6/uL (4.00-5.40); RDW 14.7 % (11.5-14.5)
[2019-07-07 07:57] LABS: PLATELET COUNT 278 10x3/uL (130-400)
[2019-07-07 08:12] LABS: ANION GAP 14.3 mmol/L (8-16); CARBON DIOXIDE 22.6 mmol/L (21.0-32.0); CHOL - HDL RATIO 2.9 ratio (2.3-4.1); CREATININE - SERUM 1.1 mg/dL (0.6-1.3); LDL-HDL RATIO 1.3 ratio (1.5-3.5)
[2019-07-07 08:14] LABS: POTASSIUM - SERUM 4.9 mmol/L (3.5-5.1)
--- NOTE | 2019-07-07 10:10 | NUR ---
PT ARRIVED BY STRETCHER. PLACED ON MONITOR. ASSESSMENT COMPLETED. DR. RODRIGUEZ AT BEDSIDE SPEAKING WITH PT AND PT'S FAMILY.
--- NOTE | 2019-07-07 10:25 | NUR ---
PT RESTING COMFORTABLY. VSS. RIGHT GROIN DRESSING C/D/I. NO S/S OF HEMATOMA NOTED.
--- NOTE | 2019-07-07 10:56 | NUR ---
US TECH AT BEDSIDE FOR CAROTID DOPPLER STUDY.
--- NOTE | 2019-07-07 11:15 | NUR ---
PT RESTING COMFORTABLY. VSS. RIGHT GROIN DRESSING C/D/I. PT'S HEAD OF BED INC TO 30 DEGREES. TOLERATED WELL. DENIES NAUSEA/PAIN AT THIS TIME. CALL LIGHT WITHIN REACH. FAMILY AT BEDSIDE.
[2019-07-07 11:27] LABS: BASOPHILS 1 % (0-2); EOSINOPHILS 1 % (0-7); LYMPHOCYTES 58 % (15-50); MONOCYTES 6 % (2-11); NEUTROPHILS 32 % (40-80); PLATELET ESTIMATE NORMAL; ROULEAUX OCC
--- NOTE | 2019-07-07 12:00 | NUR ---
RIGHT GROIN DRESSING C/D/I. NO S/S OF HEMATOMA NOTED. DR. UMAÑA AT BEDSIDE SPEAKING WITH PT AND PT'S FAMILY. [facility] OFFICE WILL CALL PT TO LET THEM KNOW OF APPOINTMENT TIME AFTER DISCHARGE. DR. RODRIGUEZ NOTIFIED OF PLAN AND DISCHARGE ORDER OBTAINED.
--- NOTE | 2019-07-07 12:15 | NUR ---
PIV D/C'D WITH CATH TIP INTACT. PT INSTRUCTED TO GET UP AND DRESSED. FAMILY AT BEDSIDE TO ASSIST. AMUBLATED TO RESTROOM AND VOIDED WITHOUT DIFFICULTY.
--- NOTE | 2019-07-07 12:27 | NUR ---
DISCUSSED DISCHARGE INSTRUCTIONS WITH PT AND PT'S FAMILY. THEY VOICED UNDERSTANDING. RIGHT GROIN DRESSING C/D/I. NO S/S OF HEMATOMA NOTED.
[2019-07-07 12:31] VITALS: Ht 160 cm; Wt 65.9 kg
--- NOTE | 2019-07-07 12:35 | NUR ---
PT TAKEN OUT TO VEHICLE BY WHEELCHAIR. NO S/S OF DISTRESS NOTED. ALL BELONGINGS AND PAPERWORK IN HAND.
== END 2019-07-07 12:35 | disposition home or self-care (01) ==
LOC: D.CATH 07:03
PROVIDERS: ATTEND Internal Medicine Cardiovascular Disease
DX: I25.10 Atherosclerotic heart disease of native coronary artery without angina pectoris (principal); R94.30 Abnormal result of cardiovascular function study, unspecified; R06.02 Shortness of breath

== ENCOUNTER → 2019-07-14 07:32 | Outpatient (CLI) | payer MEDICARE ==
[2019-07-07 12:31] VITALS: BMI 25.7
[~2019-07-14 07:32] MED LIST changes: +PLAVIX75 MG PO
== END | disposition home or self-care (01) ==
LOC: D.CT 07:32
PROVIDERS: ATTEND Internal Medicine Cardiovascular Disease
DX: I65.29 Occlusion and stenosis of unspecified carotid artery (principal)

== ENCOUNTER 2019-08-03 08:37 | Inpatient (IN) | payer MEDICARE ==
[~2019-08-03] VITALS: Ht 162.6 cm; Wt 68.1 kg
--- NOTE | ~2019-08-03 | TEE ---
PATIENT:JOHNNY VALENCIA MEDICAL RECORD: [id number] LOCATION:[place] [address] AGE OF PATIENT: 68 ADMISSION DATE: 08/09/19 SEX: F REFERRING PHYSICIAN: INTERPRETING PHYSICIAN: NAHUM LANGSTON MD TRANSESOPHAGEAL ECHOCARDIOGRAM Date: 08/09/19 KERI CHARGE Y INDICATIONS: CABG PREMEDICATIONS: PATIENT'S RESPONSE PROCEDURE DOPPLER MEASUREMENTS: LVIT LA PA RA LVOT RVOT Asc. Ao AV Gradient Peak AV Mean AV Area MV Gradient Peak MV Mean MV Area INTERPRETATION: LVd: 4.0 cm LVs: 2.2 cm LA: 3.8 cm Doppler: 2-D: COLOR FLOW DOPPLER NORMAL SALINE STUDY: MISCELLANOUS: DIAGNOSIS: PLAN: Hematology Oncology Consultant:[facility] Clinical Manager: Godfrey JANE COMMENTS: DATE OF SERVICE: 08/09/2019 Transesophageal echo evaluation of valvular structures during bypass surgery. 1. Left ventricular chamber size is within normal limits. Left ventricular systolic function is normal. Overall ejection fraction estimated at 55%. 2. Left atrium, right atrium, and right ventricle chamber sizes are within normal limits. 3. Valvular structures have normal structure and motion. TRANSESOPHAGEAL ECHOCARDIOGRAM REPORT [id number] JOHNNY VALENCIA 4. Doppler interrogation reveals mild mitral regurgitation, no other valvular insufficiency or stenosis. 5. No evidence of pericardial effusion or left ventricular thrombus. TRANSINT:[id number] Voice Confirmation ID: [id number] DOCUMENT ID: [id number] NAHUM LANGSTON MD CC: [id number] DICTATION DATE: 08/10/19 1107 FUNCTIONAL ANALYST: 08/11/19 0510 ADM IN [place] [address] [place] [address]
[~2019-08-03 08:37] MED LIST changes: -PLAVIX75 MG PO
[2019-08-03 09:20] LABS: BASOPHILS 0.3 % (0-2); EOSINOPHILS 0.9 % (0-7); HEMATOCRIT 40.6 % (36.0-48.0); HEMOGLOBIN 13.4 g/dL (12-16); IMMATURE GRANULOCYTES 0.1 % (0-5); LYMPHOCYTES 42.8 % (15-50); MCH 31.8 pg (26.0-34.0); MCV 96.4 fL (80.0-100.0); MEAN PLATELET VOLUME 10.5 fL (7.4-10.4); MONOCYTES 6.4 % (2-11); NEUTROPHILS 49.5 % (40-80); PLATELET COUNT 239 10x3/uL (130-400); RBC 4.21 10x6/uL (4.00-5.40); RDW 14.7 % (11.5-14.5); WBC 8.7 10x3/uL (4.8-10.8)
[2019-08-03 09:23] LABS: APPEARANCE CLEAR (CLEAR); BILIRUBIN NEGATIVE (NEGATIVE); COLOR YELLOW (YELLOW); GLUCOSE NEGATIVE (NEGATIVE); KETONE NEGATIVE (NEGATIVE); NITRITE NEGATIVE (NEGATIVE); PROTEIN NEGATIVE (NEGATIVE); SPECIFIC GRAVITY 1.015 (1.005-1.020); UROBILINOGEN NORMAL (NORMAL)
[2019-08-03 09:26] LABS: BACTERIA FEW /hpf (NEGATIVE); EPITHELIAL CELLS OCC /hpf (0-5); RED CELLS - URINE RARE /hpf (0-5); WHITE CELLS - URINE 0-5 /hpf (NEGATIVE)
[2019-08-03 09:34] LABS: INR 0.96 (0.85-1.17); PROTIME 12.3 SECONDS (11.6-15.0)
[2019-08-03] MEDS ORDERED: PLAVIX75 MG PO (10:07)
[2019-08-03 10:24] LABS: ANION GAP 15.4 mmol/L (8-16); BILIRUBIN - TOTAL 0.27 mg/dL (0.2-1.3); CALCIUM 9.6 mg/dL (8.5-10.1); CREATININE - SERUM 1.1 mg/dL (0.6-1.3); POTASSIUM - SERUM 4.4 mmol/L (3.5-5.1); PROTEIN - SERUM 7.8 g/dL (6.4-8.2); T4 THYROXIN - FREE 0.97 ng/dL (0.76-1.46); THYROID STIMULATING HORMONE 3.22 uIU/mL (0.36-3.74); URIC ACID 7.8 mg/dL (2.6-7.2)
[2019-08-09] VITALS (48 sets, daily range): BP systolic 93–140; BP diastolic 45–65; BMI 24.2; BMI 25.9
--- NOTE | 2019-08-09 07:00 | NUR ---
ACT QC RESULTS GIVEN TO OR BLOW TORCH OPERATOR. WILL CONTINUE TO MONITOR.
--- NOTE | 2019-08-09 13:39 | NUR ---
NOTEFIED ABOUT BASE EXCESS OF -3.7 NO ORDERS RECIEVED.
--- NOTE | 2019-08-09 16:50 | NUR ---
AT BEDSIDE GAVE FAMILY UPDATE. WILL CONTINUE TO MONITOR.
--- NOTE | 2019-08-09 17:25 | NUR ---
PT EXTUBATED AND SWAN PULLED. WILL CONTINUE TO MONITOR.
[2019-08-09 18:08] LABS: AEROBE ID Final report (())
--- NOTE | 2019-08-09 19:00 | NUR ---
REPORT RECEIVED, SHIFT ASSESSMENT COMPLETE PER FLOW SHEET, PT AWAKE AND ALERT, C/O INCISIONAL PAIN SEE FLOW SHEET, CTx2 C/D/I TO 20CM SUCTION, NO AIR LEAK NOTED, RT IJ CVL C/D/I, L SUBSTERNAL DERECK COMPRESSED, BLE HARVEST SITES, DRSG'S C/D/I, PPP, RT RADIAL ART LINE GOOD WAVEFORM ON CM, VSS, NSR ON CM, WILL CONTINUE TO MONITOR
--- NOTE | 2019-08-09 23:00 | NUR ---
REASSESSMENT COMPLETE PER FLOW SHEET, NO ACUTE CHANGES FROM PRIOR ASSESSMENT, PT RESTING WITH EYES CLOSED, WAKES WHEN RN ENTERS ROOM, REPOSITIONED FOR COMFORT, HOB ELEVATED, ALL DRSG'S C/D/I, DERECK DRAIN COMPRESSED, VSS, NATALIA ON CM, WILL CONTINUE TO MONITOR
[2019-08-10] VITALS (78 sets, daily range): BP systolic 102–158; BP diastolic 45–82; BMI 25.9
--- NOTE | 2019-08-10 03:00 | NUR ---
REASSESSMENT COMPLETE PER FLOW SHEET, NO ACUTE CHANGES FROM PRIOR ASSESSMENT, PT AWAKE AND ALERT, DANGLED AT BEDSIDE PER ORDERS, TCDB AND I/S COMPLETED, WEAK EFFORT NOTED ON I/S [id number], BLOODY OUTPUT FROM CTx2 AND DERECK DRAIN, ALL DRSG'S C/D/I, REPOSITIONED FOR COMFORT, VSS, NSR ON CM, WILL CONTINUE TO MONITOR
--- NOTE | 2019-08-10 04:45 | NUR ---
DAUGHTER AT BEDSIDE, UPDATE GIVEN, QUESTIONS ANSWERED, NEW YELLOW GOWN GIVEN PER REQUEST, PT PREFERED DAUGHTER ASSIST PLACING GOWN ON AND MALE RN TO EXIT ROOM, DAUGHTER STATED SHE WOULD ASSIST WITH PLACING GOWN ON MOTHER, VSS, NO FURTHER NEEDS AT THIS TIME, WILL CONTINUE TO MONITOR
[2019-08-10 05:44] LABS: BASOPHILS 0 % (0-2); EOSINOPHILS 0 % (0-7); HEMATOCRIT 39.5 % (36.0-48.0); HEMOGLOBIN 13.1 g/dL (12-16); IMMATURE GRANULOCYTES 0.3 % (0-5); LYMPHOCYTES 17.3 % (15-50); MCH 31.3 pg (26.0-34.0); MCHC 33.2 g/dL (31.0-37.0); MCV 94.3 fL (80.0-100.0); MEAN PLATELET VOLUME 10.8 fL (7.4-10.4); MONOCYTES 6.4 % (2-11); RBC 4.19 10x6/uL (4.00-5.40); RDW 16.1 % (11.5-14.5); WBC 17.7 10x3/uL (4.8-10.8)
[2019-08-10 06:14] LABS: ALBUMIN 2.9 g/dL (3.4-5.0); BILIRUBIN - TOTAL 0.17 mg/dL (0.2-1.3); CARBON DIOXIDE 22.3 mmol/L (21.0-32.0); CREATININE - SERUM 1.2 mg/dL (0.6-1.3); POTASSIUM - SERUM 4.3 mmol/L (3.5-5.1); PROTEIN - SERUM 5.8 g/dL (6.4-8.2)
[2019-08-10 06:39] LABS: PLATELET COUNT 160 10x3/uL (130-400)
--- NOTE | 2019-08-10 09:35 | NUR ---
A-LINE REMOVED PER . WILL CONTINUE TO MONITOR.
--- NOTE | 2019-08-10 12:17 | OP ---
PATIENT NAME: JOHNNY VALENCIA MEDICAL RECORD: [id number] :46 [facility] ADMISSION DATE:08/09/19 SURGEON: RODRIGUE UMAÑA MD DATE OF OPERATION: 08/09/2019 SURGEON: Rodrigue Umaña MD SENIOR LINUX UNIX ADMINISTRATOR: None. PROCEDURES PERFORMED: Coronary artery bypass graft times 3 (left internal mammary artery to LAD, reverse saphenous vein graft from aorta to first obtuse marginal, aorta to right coronary artery). PREOPERATIVE DIAGNOSES: Coronary artery disease and carotid stenosis. POSTOPERATIVE DIAGNOSES: Coronary artery disease and carotid stenosis. ANESTHESIA: General endotracheal anesthesia. ESTIMATED BLOOD LOSS: Total cardiopulmonary bypass with Cell Saver retransfusion, 1 unit packed red blood cells. COMPLICATIONS: None. SPECIMENS: GIULIANO lymph node for permanent specimen. CONDITION: Stable. DISPOSITION: ICU. OPERATIVE FINDINGS: 1. Transesophageal echocardiography revealed good contractility with trace mitral regurgitation before and after cardiopulmonary bypass. 2. Greater saphenous vein below the knee was very small and thin walled, not amenable for endovascular vein harvest. Open bridging incisions at the right thigh and left thigh to obtain 2 pieces of vein. 3. Good quality left internal mammary artery. The LAD was a 1.5 mm totally occluded vessel, but a 1.5 mm probe passed distally to the apex. Good Doppler signal after anastomosis and after separation from cardiopulmonary bypass. The vessel had severe disease with anastomosis and plaque. 4. First obtuse marginal 1.5 mm vessel with severe disease, split plaque for anastomosis. 5. Right coronary artery 2.0 mm. 6. The first diagonal was small and thin walled. 7. Proximal portion of the right coronary artery graft was thin walled. 8. Severe large vessel calcification including at the base of the innominate and the distal ascending aorta anteriorly and in the lower right side of the ascending aorta. OPERATIVE INDICATION: Coronary artery disease. DESCRIPTION OF PROCEDURE: The patient was brought to the operating suite. General anesthesia was obtained. The patient was prepped and draped. Attempt to find a sizable greater saphenous vein below the knee was unsuccessful in both lower extremities. Open bridging incisions were made on both thighs. The OPERATIVE REPORT [id number] JOHNNY VALENCIA greater saphenous vein was dissected out. Side branches were clipped. Vessel was ligated proximally and distally and removed and later legs were closed in 2 layers, side-branches on the vein were tied. Median sternotomy incision was made. Subcutaneous tissue was divided with electrocautery. The sternum was divided with a saw. Left hemisternum was elevated. Left pleural cavity was entered. Left internal mammary vein was taken as a pedicle graft. Sternal retractor was placed. Pericardium was opened. Heparin was given. Aorta was cannulated. Dual stage venous cannula was inserted. The internal mammary was clipped distally and made ready for anastomosis. The activated clotting time was appropriately elevated. The patient was placed on cardiopulmonary bypass. Sites for distal anastomoses were selected. The antegrade cardioplegia cannula was inserted. The patient's temperature drifted downwardly to 34 degrees. Crossclamp was placed. Cardioplegia was given antegrade. This was repeated at 15-minute intervals including down the completed vein grafts. Distal anastomosis was performed in standard technique. Proximal anastomosis with single cross-clamp technique. Aortic root was de-aired by removing the clamp, tying the proximal anastomoses during the vein graft restoring flow. Single sutures in the proximal anastomoses. Hemostasis was ensured. The patient resumed a spontaneous rhythm, fully rewarmed, weaned from cardiopulmonary bypass and was stable. The patient was decannulated. Cannulation sites were oversewn. Protamine was given. Drains were placed in the mediastinum and left pleural cavity. Ventricular pacing wires were placed. The pericardial fat was loosely reapproximated in the midline. Left chest was evacuated and irrigated. The internal mammary harvest site was hemostatic. Sternum was closed with wires. Fascia was closed. Subcutaneous tissue was closed. Skin was closed. Dermabond was placed. The needle and sponge counts reported as correct and the patient was taken to ICU in stable condition. TRANSINT:[id number] Voice Confirmation ID: [id number] DOCUMENT ID: [id number] RODRIGUE UMAÑA MD at 1217 CC: SHELLEY RODRIGUEZ M.D. and ALCIDES ANDERSON [id number] DICTATION DATE: 08/09/19 1344 MAINTENANCE PERSON: 08/09/[address] [facility] [address] [place] [address]
--- NOTE | 2019-08-10 13:10 | NUR ---
NURSE REANNA PULLED CHEST TUBES. PT IN BED RESTING WILL CONTINUE TO MONITOR.
--- NOTE | 2019-08-10 15:45 | NUR ---
PT GIVEN PAIN MEDICATION FOR PAIN AT LEVEL OF 8. DENIES ANY OTHER NEEDS. CALL LIGHT IN REACH.
--- NOTE | 2019-08-10 18:37 | NUR ---
ORAL CARE DONE WITH PERIDEX
--- NOTE | 2019-08-10 19:00 | NUR ---
CALLED, UPDATE GIVEN ON PT SPO2% 85-90% ON HIGH FLOW NC @15 L/MIN, PT AWAKE AND ALERT, DENIES PAIN, I/S COMPLETED [id number], TCDB COMPLETED, SPO2% CONTINUES TO BE DECREASED. ORDERS RECEIVED FROM ; STAT CHEST X-RAY, 40MG LASIX PIV NOW, AND TO CALL PULMONARY AND UPDATE. RADIOLOGY NOTIFIED OF STAT ORDERS, FAMILY AT BEDSIDE AND UPDATED ON SITUATION, NO FURTHER AT THIS TIME, WILL CONTINUE TO ASSESS
--- NOTE | 2019-08-10 19:02 | NUR ---
DR NGUYEN NOTIFIED OF PT SATS AND 15L HF USE. NEW ORDER FOR BIPAP 08/11 AT 40%. RESPIRATORY THERAPIST NOTIFIED OF ORDER
--- NOTE | 2019-08-10 20:00 | NUR ---
UPDATED ON PT, NO NEW ORDERS RECEIVED, PT AWAKE AND ALERT ON BIPAP DENIES PAIN, SIP OF ICE WATER GIVEN PER REQUEST BIPAP REMOVED DURING DRINK AND PLACED BACK ON PT, VSS, NSR ON CM, WILL CONTINUE TO MONITOR
--- NOTE | 2019-08-10 20:30 | NUR ---
AT BEDSIDE WITH FAMILY, FAMILY UPDATED , TCDB COMPLETED, TOLLERATING BIPAP WELL, REPOSITIONED FOR COMFORT, VSS, WILL CONTINUE TO MONITOR
--- NOTE | 2019-08-10 23:45 | NUR ---
TEMPERATURE ELEVATED 101.2 DEG F, TYLENOL GIVEN PER ORDERS/MAR, ROOM TEMP DECREASED, EXCESS COVERS REMOVED, PT DENIES PAIN OR NEEDS, WILL CONTINUE TO MONITOR
[2019-08-11] VITALS (57 sets, daily range): BP systolic 85–123; BP diastolic 42–79
--- NOTE | 2019-08-11 02:30 | NUR ---
BIPAP OFF PT, HIGH FLOW NC PLACED ON PT, SIP OF ICE WATER PER REQUEST, I/S COMPLETED [id number] WITH GOOD EFFORT, FLUDDER x10, PT C/O DULL ACHING INCISIONAL PAIN 8/10 ON NUMERIC PAIN SCALE, PAIN MED GIVEN SEE MAR/ORDERS, VSS, NSR ON CM, PLACED PT BACK ON BIPAP @ 70% FiO2, REPOSITIONED FOR COMFORT, DENIES OTHER NEEDS AT THIS TIME, WILL CONTINUE TO MONITOR, CALL LIGHT IN REACH, BED ALARM ON, AT BEDSIDE
--- NOTE | 2019-08-11 03:00 | NUR ---
REASSESSMENT COMPLETE PER FLOW SHEET, NO ACUTE CHANGE NOTED, PT REPOSITIONED FOR COMFORT, BIPAP ON PER ORDERS, PT VSS, NSR ON CM, I/S [id number] TCDB COMPLETED, PT DENIES NEEDS AT THIS TIME, AT BEDSIDE, UPDATE GIVEN, BED ALARM ON, CALL LIGHT IN REACH, WILL CONTINUE TO MONITOR
[2019-08-11 06:25] LABS: ALBUMIN 2.5 g/dL (3.4-5.0); ANION GAP 10.3 mmol/L (8-16); BILIRUBIN - TOTAL 0.57 mg/dL (0.2-1.3); CALCIUM 8.6 mg/dL (8.5-10.1); CARBON DIOXIDE 26.2 mmol/L (21.0-32.0); CREATININE - SERUM 1.4 mg/dL (0.6-1.3); POTASSIUM - SERUM 4.5 mmol/L (3.5-5.1); PROTEIN - SERUM 5.5 g/dL (6.4-8.2)
[2019-08-11 07:19] LABS: HEMATOCRIT 33.6 % (36.0-48.0); HEMOGLOBIN 11.3 g/dL (12-16); LYMPHOCYTES 19.3 % (15-50); MCH 31.5 pg (26.0-34.0); MCHC 33.6 g/dL (31.0-37.0); MCV 93.6 fL (80.0-100.0); NEUTROPHILS 75.8 % (40-80); RBC 3.59 10x6/uL (4.00-5.40); RDW 15.8 % (11.5-14.5); WBC 17.4 10x3/uL (4.8-10.8)
[2019-08-11 07:20] LABS: PLATELET COUNT 113 10x3/uL (130-400)
--- NOTE | 2019-08-11 07:41 | NUR ---
report received. shift assessment complete. pt on bipap. has been given sips of water. i.s of 500, flutter done. family at bedside. breakfast tray has been taken in to room, but has been requested to wait a little while to take bipap back off since she is now resting.
--- NOTE | 2019-08-11 10:41 | NUR ---
DR UMAÑA BY TO SEE PATIENT. FAMILY AT BEDSIDE. UPDATE GIVEN. PT ASKED FOR BREAK FROM BIPAP TO DRINK SOME COFFEE. PLACED ON 15L HF. PT ABLE TO DRINK SOME COFFEE. DID I.S. 500-750. PLACED BACK ON BIPAP
--- NOTE | 2019-08-11 15:35 | NUR ---
PT SATS NOT STAYING UP. ENCOURAGED DEEP BREATHS THROUGH NOSE. DID I.S. AND FLUTTER. PT HAD GOOD PRODUCTIVE COUGH. SATS NOT COMING UP. RESPIRATORY THERAPIST AT BEDSIDE AND WE'VE PLACED PT BACK ON BIPAP. ANIL HAS BEEN STARTED FOR LOW SBP.
[2019-08-11 16:08] LABS: APPEARANCE CLEAR (CLEAR); BILIRUBIN NEGATIVE (NEGATIVE); COLOR YELLOW (YELLOW); GLUCOSE NEGATIVE (NEGATIVE); KETONE NEGATIVE (NEGATIVE); NITRITE NEGATIVE (NEGATIVE); PROTEIN NEGATIVE (NEGATIVE); SPECIFIC GRAVITY 1.025 (1.005-1.020); UROBILINOGEN NORMAL (NORMAL)
[2019-08-11 16:13] LABS: BACTERIA FEW /hpf (NEGATIVE); EPITHELIAL CELLS 0-5 /hpf (0-5); RED CELLS - URINE 0-5 /hpf (0-5); WHITE CELLS - URINE 0-5 /hpf (NEGATIVE)
--- NOTE | 2019-08-11 17:00 | NUR ---
DR UMAÑA NOTIFIED PT SATS HAD DROPPED AND STAYED DOWN LONG ENOUGH THAT WE NEEDED TO PLACE PT BACK ON BIPAP. PT REMAINS IN A-FIB, NOW UNCONTROLLED MOSTLY UNDER 120. IS ON ANIL AT 0.2MCG/KG/MIN
--- NOTE | 2019-08-11 17:16 | NUR ---
PT CAME TO DESK AND ASKED IF PT COULD HAVE A DRINK OF WATER. PT SATS 91% AND HR 128. LET HIM KNOW SHE NEEDED TO KEEP THE MASK ON FOR RIGHT NOW. WON'T BE ABLE TO GIVE WATER/TAKE OFF MASK FOR A LITTLE WHILE UNTIL SHE STOPS FLUCTUATING SO MUCH ON HER SATS.
--- NOTE | 2019-08-11 18:57 | NUR ---
ORAL CARE DONE WITH PERIDEX
--- NOTE | 2019-08-11 19:00 | NUR ---
REPORT RECEIVED, SHIFT ASSESSMENT COMPLETE PER FLOW SHEET, PT AWAKE AND ALERT ON BIPAP@ 70% FiO2, UNCONTROLLED A-FIB @115 bpm ON CM, OTHER VSS, ALL DRASG'S C/D/I, LEFT SUBSTERNAL DERECK DRAIN COMPRESSED, BLE HARVEST SITES C/D/I, PPP, REPOSITIONED IN BED FOR COMFORT, LIDIA HOSE AND SCD BLE, CALL LIGHT IN REACH, BED ALARM ON, AT BEDSIDE, NO FURTHER NEEDS AT THIS TIME WILL CONTINUE TO ASSESS
--- NOTE | 2019-08-11 21:00 | NUR ---
MEDS GIVEN PER NOV/ORDERS, NO ACUTE S/S OF DISTRESS NOTED, CONTINUES AFIB ON CM, PT DESATS QUICKLY WHEN BIPAP OFF AND ON HIGH FLOW NC @15 L/MIN, TCDB AND I/S COMPLETED, PLACED BACK ON BIPAP @70%FiO2 SOPO2% INCREASES TO 90'S
--- NOTE | 2019-08-11 21:45 | NUR ---
PT CONVERTED FROM ATRIAL FIB TO NSR @ RATE 85bpm ON CM, ALL OTHER VSS, WILL CONTINUE TO ASSESS
--- NOTE | 2019-08-11 23:00 | NUR ---
REASSESSMENT COMPLETE PER FLOW SHEET, NO ACUTE CHANGES NOTED FROM PRIOR ASSESSMENT, ASSEMBLER WATCH TRAIN AT BEDSIDE FOR METANEB Tx, PT C/O INCISIONAL ACHING PAIN 7/10 ON PAIN SCALE, PAIN MED GIVEN PER MAR/ORDERS, VSS, NSR ON CM, TCDB AND IO/S COMPLETED, PT PRODUCING THICK MUCOUS THAT IS DIFFICULT FOR PT TO CLEAR FROM THROAT WITHOUT SUCTIONING, PT SPO2% ON CM IMPROVED AFTER MUCOUS CLEARED, PT PLACED BACK ON BIPAP, TOLLERATING WELL AT THIS TIME, WILL CONTINUE TO MONITOR
[2019-08-12] VITALS (35 sets, daily range): BP systolic 90–137; BP diastolic 38–80; Ht 162.6 cm; Wt 68.1 kg
--- NOTE | 2019-08-12 03:00 | NUR ---
REASSESSMENT COPMPKLETE PER FLOW SHEET, NO ACUTE CHANGES NOTED FROM PRIOR ASSESSMENT, TCDB AND I/S COMPLETED [id number] & FLUDDER x10, PT CONTINUES TO PRODUCE THICK SECREATIONS, VSS, NSR ON CM, REPOSITIONED IN BED FOR COMFORT, WILL CONTINUE TO MONITOR
[2019-08-12 06:29] LABS: ANION GAP 13.1 mmol/L (8-16); BILIRUBIN - TOTAL 0.54 mg/dL (0.2-1.3); CALCIUM 8.3 mg/dL (8.5-10.1); CARBON DIOXIDE 23.9 mmol/L (21.0-32.0); CREATININE - SERUM 1.2 mg/dL (0.6-1.3); PROTEIN - SERUM 5.2 g/dL (6.4-8.2)
[2019-08-12 06:35] LABS: BASOPHILS 0 % (0-2); EOSINOPHILS 0 % (0-7); HEMATOCRIT 29.5 % (36.0-48.0); HEMOGLOBIN 9.8 g/dL (12-16); IMMATURE GRANULOCYTES 0.3 % (0-5); LYMPHOCYTES 20.6 % (15-50); MCH 31.1 pg (26.0-34.0); MCHC 33.2 g/dL (31.0-37.0); MCV 93.7 fL (80.0-100.0); MEAN PLATELET VOLUME 11.4 fL (7.4-10.4); MONOCYTES 4.4 % (2-11); NEUTROPHILS 74.7 % (40-80); PLATELET COUNT 133 10x3/uL (130-400); RBC 3.15 10x6/uL (4.00-5.40); RDW 15.5 % (11.5-14.5); WBC 15.4 10x3/uL (4.8-10.8)
--- NOTE | 2019-08-12 12:47 | NUR ---
Nutrition Follow-up: Pt reports appetite improving; still not eating very much. Does not want nutrition supplements yet. POD 3 CABG. Diet: Cardiac PO intake: 17% avg x 3 meals (08/11) Last BM: CHUCK BONER Labs noted: Glu 96, Ca 8.3, Alb 2.0 Meds noted: Senokot, Colace -Continue current diet as tolerated. -Offer nutrition supplements. -RD following.
--- NOTE | 2019-08-12 14:55 | NUR ---
DERECK DRAIN AND TPM WIRE DC'D BY DR. UMAÑA.
--- NOTE | 2019-08-12 16:58 | MORECARE ---
CASE MANAGEMENT DISCHARGE SUMMARY PATIENT: JOHNNY VALENCIA UNIT: [id number] ADM DATE: 08/09/19 AGE: 68 : 48 SEX: F ROOM/BED: [facility] AUTHOR: RERE VOGEL PHYSICIAN: REFERRING PHYSICIAN: CORBY UMAÑA MD DATE OF SERVICE: 08/12/19 Discharge Plan Patient Name: JOHNNY VALENCIA Facility: [facility]:[place] : 1950 Planned Disposition: Home Anticipated Discharge Date: Discharge Date: Expected LOS: Initial Reviewer: [email or web address] Initial Review Date: 08/11/2019 Generated: 08/12/19 5:58 pm Patient Name: JOHNNY VALENCIA Page [id number] at 1658 All edits/amendments must be made on the electronic document DICTATION DATE: 08/12/191657 APPLIED ANTHROPOLOGIST: [place] 08/12/191657 RPT#: [id number] DC DATE: STATUS: ADM IN [facility] [address] [place] [address] END OF REPORT
--- NOTE | 2019-08-12 17:09 | MORECARE ---
CASE MANAGEMENT DISCHARGE SUMMARY PATIENT: JOHNNY VALENCIA UNIT: [id number] ADM DATE: 08/09/19 AGE: 68 : 48 SEX: F ROOM/BED: [facility] AUTHOR: LELA,DOC PHYSICIAN: REFERRING PHYSICIAN: CORBY UMAÑA MD DATE OF SERVICE: 08/12/19 Discharge Plan Patient Name: JOHNNY VALENCIA Facility: [facility]:[place] : 1950 Planned Disposition: Home Anticipated Discharge Date: Discharge Date: Expected LOS: Initial Reviewer: [email or web address] Initial Review Date: 08/11/2019 Generated: 08/12/19 6:08 pm Comments DCP- Discharge Planning Updated by [email or web address]: Julienne Hawkins on 08/12/19 4:[address] LATE ENTRY 08-12-19 Patient Name: JOHNNY VALENCIA Admission Status: Urgent Accout number: [id number] Admission Date: 08-09-2019 : 1950 Admission Diagnosis: Attending: CORBY UMAÑA Current LOS: 3 Anticipated DC Date: Planned Disposition: Home Primary Insurance: [employer] ADV Discharge Planning Comments: CM met with patient to complete initial dc planning assessment. CM educated patient on the CM role and verbal consent given by patient to complete assessment. Patient lives at home with her where she is independent with her care. At discharge patient plans to return home and feels this is a safe discharge. CM discussed availability of home health, rehab services, and medical equipment. Her daughter will be her line haul driver home. Patient may need walk test for home 02 prior to discharge. Patient denied known discharge needs at this time. CM will continue to follow and will assist as needed with dc plans/needs. Disability Rater: Julienne Hawkins DCPIA - Discharge Planning Initial Assessment Updated by [email or web address]: Julienne Hawkins on 08/12/19 5:00 pm * Is the patient Alert and Oriented? Yes * How many steps to enter\exit or inside your home? * PCP [facility] * [facility] * Preadmission Environment Home with Family * ADLs Independent * Equipment Walker * List name and contact numbers for known caregivers / representatives who currently or will assist patient after discharge: CORTNEY JAQUELIN - DAUGHTER- [phone] * Verbal permission to speak to the caregivers and representatives has been obtained from the patient. Yes * Community resources currently utilized None * Additional services required to return to the preadmission environment? No * Can the patient safely return to the preadmission environment? Yes * Has this patient been hospitalized within the prior 30 days at any hospital? No Last DP export: 08/12/19 3:58 p Patient Name: JOHNNY VALENCIA Page [phone] at 1709 All edits/amendments must be made on the electronic document DICTATION DATE: 08/12/191707 GEOMORPHOLOGIST: VIR[place] 08/12/191707 RPT#: [id number] DC DATE: STATUS: ADM IN [facility] [address] [place] [address] END OF REPORT
--- NOTE | 2019-08-12 19:20 | NUR ---
REPORT REC'D AND CARE ASSUMED, REC'D PT RESTING IN BED ON 15LITER HF, AWAKE, ALERT, AND ORIENTED X 4, RIJ CVL DRSG CDI, SALINE LOCKED, MIDSTERNAL DRSG CDI, SUBSTERNAL DRSG TO OLD CT/DERECK/ P/M WIRE SITES CDI, CRITICORE MARCUS PATENT DRAINING YELLOW URINE, BILAT HARVEST SITES, DRSG CDI, BILAT TEDS/SCDS, PPP, PT DENIES PAIIN OR NEEDS, BED IN LOW POSITION, CALL LIGHT IN REACH.
--- NOTE | 2019-08-12 20:30 | NUR ---
FAMILY AT VISITING WITH PATIENT
--- NOTE | 2019-08-12 21:25 | NUR ---
EVENING MEDS GIVEN AND BACTROBAN APPLIED TO ELVIN TALLEY, AT BS, PT DENIES FURTHER NEEDS, VSS.
--- NOTE | 2019-08-12 21:35 | NUR ---
RT AT BS, PT PLACED ON BIPAP @ 70 %, O2 SAT 90% AT THIS TIME, WILL MONITOR CLOSELY FOR CHANGES.
--- NOTE | 2019-08-12 23:45 | NUR ---
REASSESSMENT COMPLETED, PT PULLED OFF BIPAP, STATED "YOU CAN TURN THAT OFF", PT PLACED ON 15LITER HF, ICE WATER PROVIDED ON REQUEST, WILL MONITOR FOR CHANGES.
[2019-08-13] VITALS (25 sets, daily range): BP systolic 109–152; BP diastolic 45–71
--- NOTE | 2019-08-13 00:50 | NUR ---
PT'S O2 SAT DECREASED TO 82%, BIPAP MASK REAPPLIED, O2 SAT 96%, BP 127/55, SR UP X 2, CALL LIGHT IN REACH.
--- NOTE | 2019-08-13 01:45 | NUR ---
ROUTINE MED GIVEN ORDERED, PT RESTING IN BED ON BIPAP, BP STABLE, DENIES NEEDS.
--- NOTE | 2019-08-13 02:00 | NUR ---
PT PULLED OFF BIPAP STATES " I NEED THAT OFF FOR AWHILE", HF NC APPLIED @ 15 LITERS, PT DENIES PAIN OR OTHER NEEDS AT THIS TIME, CALL LIGHT IN REACH.
--- NOTE | 2019-08-13 03:15 | NUR ---
REASSESSMENT COMPLETED, PT RESTING EYES CLOSED, O2 SAT 93% ON 15LITER HF, VSS, WILL CONT TO MONITOR FOR CHANGES.
--- NOTE | 2019-08-13 05:00 | NUR ---
RT AT BS FOR TREATMENT, ICE WATER PROVIDED AND ROUTINE MED GIVEN ORDERED.
--- NOTE | 2019-08-13 05:50 | NUR ---
PT TAKEN TO RADIOLOGY FOR PA AND LATERAL
[2019-08-13 05:53] LABS: BASOPHILS 0.1 % (0-2); EOSINOPHILS 0 % (0-7); HEMATOCRIT 29.5 % (36.0-48.0); HEMOGLOBIN 10.1 g/dL (12-16); IMMATURE GRANULOCYTES 0.3 % (0-5); LYMPHOCYTES 19.3 % (15-50); MCH 31.6 pg (26.0-34.0); MCHC 34.2 g/dL (31.0-37.0); MCV 92.2 fL (80.0-100.0); MEAN PLATELET VOLUME 11.1 fL (7.4-10.4); MONOCYTES 3.4 % (2-11); NEUTROPHILS 76.9 % (40-80); PLATELET COUNT 168 10x3/uL (130-400); WBC 15.4 10x3/uL (4.8-10.8)
--- NOTE | 2019-08-13 06:05 | NUR ---
PT RETURNED TO ROOM, LINEN CHANGE PROVIDED, PT ASSISTED TO RECLINER WITH MINIMAL ASSIST, COFFEE AND ICE WATER PROVIDED, DAUGHTERS IN ROOM AT THIS TIME.
[2019-08-13 06:36] LABS: ALBUMIN 1.9 g/dL (3.4-5.0); ANION GAP 15.2 mmol/L (8-16); BILIRUBIN - TOTAL 0.51 mg/dL (0.2-1.3); CALCIUM 8.5 mg/dL (8.5-10.1); CARBON DIOXIDE 23.7 mmol/L (21.0-32.0); CREATININE - SERUM 0.9 mg/dL (0.6-1.3); MAGNESIUM - SERUM 2.1 mg/dL (1.8-2.4); POTASSIUM - SERUM 3.9 mmol/L (3.5-5.1)
--- NOTE | 2019-08-13 13:32 | NUR ---
0745: SEE FLOWSHEET FOR ASSESSMENT. UP IN CHAIR. NO DISTRESS NOTED. 0800: O2 DECREASED TO 13 LPM 0830: ASSISTED BACK TO BED. 0945: IV STARTED WITH 20G ON 1ST ATTEMPT L VENTRAL FOREARM. 1000: R IJ DC'D. SITE DRESSED WITH 2X2 AND TEGADERM. O2 DECREASED TO 11 LPM. 1100: NO CHANGES IN ASSESSMENT. O2 DECREASED TO 9 LPM. 1130: BACK UP TO CHAIR FOR LUNCH. 1300: WALKED WITH PT APPROX 100 FT. SP02 DROPPED TO 77%.
--- NOTE | 2019-08-13 19:20 | NUR ---
REPORT REC'D AND CARE ASSUMED, REC'D PT AWAKE, ALERT, AND ORIENTED AT THIS TIME, FAMILY AT BS, RIJ CVL SALINE LOCKED, DRSG CDI, MIDSTERNAL DRSG CDI, SUBSTERNAL DRSG CDI, CRITICORE MARCUS PATENT DRAINING CLEAR YELLOW URINE, RIGHT AND LEFT LEG DRSGS CDI, TEDS AND SCDS ON, PPP, PT DENIES PAIN OR OTHER NEEDS AT THIS TIME, AND DAUGHTER AT .
--- NOTE | 2019-08-13 20:30 | NUR ---
ENTERED ROOM TO GIVE PT HER EVENING MEDS, PT SITTING SIDE WAYS WITH FEET HANGING OFF BED, STATES I THOUGHT SHE WAS GOING TO GET OOB, PT STATES "NO I WAS JUST GOING TO SIT UP ON THE SIDE OF BED", ASSISTED PT TO SIT UP IN BED, EVENING MEDS GIVEN WITHOUT DIFFICULTY, PT REPOSITIONED IN BED FOR COMFORT, SR UP X 2, CALL LIGHT IN REACH, VSS.
--- NOTE | 2019-08-13 21:20 | NUR ---
PULSE OX 83%, COUGHING AND DEEP BREATHING DONE WITH PATIENT, PT ASSISTED TO REPOSITION IN BED, O2 SAT 82%, O2 INCREASED TO 11 LITER HF, WILL MONITOR CLOSELY FOR CHANGES.
--- NOTE | 2019-08-13 21:30 | NUR ---
PT RESTING QUIETLY IN BED, O2 SAT 92% ON 11LITER HF, AT BS, WILL CONT TO MONITOR CLOSELY FOR CHANGES.
--- NOTE | 2019-08-13 23:00 | NUR ---
REASSESSMENT COMPLETED, PT REMAINS AWAKE, CALLING HELEN HER DOG AT THIS TIME, ATTEMPTS TO REORIENT UNSUCCESSFUL, PT REMOVED BP CUFF, BP CUFF REAPPLIED, WILL CONTINUE TO MONITOR CLOSELY.
[2019-08-14] VITALS (23 sets, daily range): BP systolic 123–158; BP diastolic 43–89
--- NOTE | 2019-08-14 01:20 | NUR ---
PT ATTEMPTING TO GET OOB, STATES SHE IS GOING TO THE "FRONT ROOM", REORIENTED PT AND REPOSITIONED UP IN BED, BP STABLE, WILL CONT TO MONITOR FOR CHANGES.
--- NOTE | 2019-08-14 03:10 | NUR ---
PT YELLING AT AND ARGUMENTATIVE WITH STAFF, PT HAVING VISUAL HALLUCINATIONS, STATES "THERE ARE SNAKES EVERYWHERE AND NOBODY IS CATCHING THEM", ATTEMPTS TO REORIENT PT UNSUCCESSFUL, PT ASSISTED UP TO SIT ON SIDE OF BED, PT STATING SHE NEEDS TO GO TO THE BATHROOM, EXPLAINED TO PT SHE HAS A CATHETER, ASSISTED PT UP TO BATHROOM WITH NO RESULTS NOTED, DAUGHTER AT BS, PT ASSISTED BACK TO BED, SR UP X 2, BED IN LOW POSITION.
--- NOTE | 2019-08-14 03:45 | NUR ---
CM-SB @ 47, BP 151/85 WILL MONITOR CLOSELY FOR CHANGES.
--- NOTE | 2019-08-14 04:00 | NUR ---
DR. UMAÑA NOTIFIED OF MARKED BRADYCARDIA AND PT'S MENTAL STATUS, STATED TO HAVE FAMILY SIT WITH PATIENT AND STAT ABG, RT NOTIFIED
--- NOTE | 2019-08-14 04:30 | NUR ---
PT ASSISTED UP TO BATHROOM FOR BM WITHOUT RESULT, PT ASSISTED BACK TO BED, DAUGHTER AT BS, VSS.
--- NOTE | 2019-08-14 05:35 | NUR ---
LAB AT BS FOR AM LAB, ROUTINE MEDS GIVEN, POTASSIUM 3.3 ON ABG, POTASSIUM 40MEQ PO GIVEN, CM-SR @ 67, VSS.
[2019-08-14 05:54] LABS: HEMOGLOBIN 10.6 g/dL (12-16); MCH 31.5 pg (26.0-34.0); MCHC 34.2 g/dL (31.0-37.0); MEAN PLATELET VOLUME 11.1 fL (7.4-10.4); PLATELET COUNT 249 10x3/uL (130-400); RBC 3.37 10x6/uL (4.00-5.40); RDW 15.2 % (11.5-14.5); WBC 21.2 10x3/uL (4.8-10.8)
[2019-08-14 05:56] LABS: LYMPHOCYTES 20 % (15-50); MONOCYTES 4 % (2-11); NEUTROPHILS 76 % (40-80); PLATELET ESTIMATE NORMAL
[2019-08-14 06:09] LABS: ALBUMIN 2.1 g/dL (3.4-5.0); BILIRUBIN - TOTAL 0.49 mg/dL (0.2-1.3); CALCIUM 8.9 mg/dL (8.5-10.1); CARBON DIOXIDE 25.5 mmol/L (21.0-32.0); CREATININE - SERUM 1.1 mg/dL (0.6-1.3); POTASSIUM - SERUM 3.5 mmol/L (3.5-5.1); PROTEIN - SERUM 5.5 g/dL (6.4-8.2)
--- NOTE | 2019-08-14 06:15 | NUR ---
PT RESTING ON LEFT SIDE TALKING TO DAUGHTER REMAINS CONFUSED, VSS, PULSE OX 94%, CM-SR @ 64, WILL MONITOR CLOSELY FOR CHANGES
--- NOTE | 2019-08-14 19:08 | NUR ---
REPORT RECEIVED, SHIFT ASSESSMENT COMPLETED PER FLOW SHEET, SEE FOR DETAILS. PATIENT CONFUSED, REORIENTATION PROVIDED. FAMILY AT BEDSIDE. CALL LIGHT WITHIN REACH. WILL CONTINUE TO MONITOR. 2100 SCHEDULED MEDS GIVEN, SEE EMAR FOR DETAILS. 2301 REASSESSMENT COMPLETED PER FLOW SHEET, SEE FOR DETAILS. 0100 RESTING, NO ACUTE DISTRESS NOTED, DENIES NEEDS. WILL CONTINUE TO MONITOR. 0300 REASSESSMENT COMPLETED PER FLOW SHEET, SEE FOR DETAILS.
[2019-08-15] VITALS (21 sets, daily range): BP systolic 102–161; BP diastolic 44–96
[2019-08-15 04:22] LABS: BASOPHILS 0.1 % (0-2); EOSINOPHILS 0 % (0-7); HEMATOCRIT 31.4 % (36.0-48.0); HEMOGLOBIN 10.5 g/dL (12-16); IMMATURE GRANULOCYTES 0.7 % (0-5); LYMPHOCYTES 25.8 % (15-50); MCHC 33.4 g/dL (31.0-37.0); MCV 92.6 fL (80.0-100.0); MEAN PLATELET VOLUME 10.8 fL (7.4-10.4); MONOCYTES 4.8 % (2-11); NEUTROPHILS 68.6 % (40-80); PLATELET COUNT 255 10x3/uL (130-400); RBC 3.39 10x6/uL (4.00-5.40)
[2019-08-15 04:40] LABS: CARBON DIOXIDE 28.1 mmol/L (21.0-32.0); MAGNESIUM - SERUM 1.8 mg/dL (1.8-2.4); PHOSPHOROUS 3.4 mg/dL (2.5-4.9); POTASSIUM - SERUM 4.1 mmol/L (3.5-5.1)
--- NOTE | 2019-08-15 05:00 | NUR ---
RESTING, NO ACUTE CHANGES NOTED, WILL CONTINUE TO MONITOR. 0700 BP 160/63, CALLED AND SPOKE TO DR. UMAÑA, NEW ORDERS RECEIVED, SEE ORDERS FOR DETAILS.
[2019-08-15 05:18] LABS: ERYTHROCYTE SEDIMENTATION RATE 18 mm/hr (0-30)
--- NOTE | 2019-08-15 13:59 | NUR ---
Nutrition Follow-up: POD 6 CABG. Pt reports improved appetite/PO intake. States she ate ~50% of breakfast this AM. Was working on lunch at time of visit. No BM yet. Family reports pt takes stool softener chronically at home. Diet: Cardiac Wt: 154.3# Labs noted: Glu 113 Meds noted: Micro K, Solumedrol, MagOx, Senokot, Colace -Continue current diet as tolerated. -Offer nutrition supplements with meals. -RD following.
--- NOTE | 2019-08-15 19:00 | NUR ---
Report received from off going nurse. Pt is resting in bed with family at bedside. Initial assessment completed, see flowsheet for details. Pt denies needs at this time. No s/s of distress. Will continue to monitor.
--- NOTE | 2019-08-15 21:00 | NUR ---
Pt is resting in bed with eyes closed. Daughter at bedside. No needs voiced. No s/s of distress. Will continue to monitor.
--- NOTE | 2019-08-15 23:00 | NUR ---
Reassessment completed, see flowsheet for details. Pt is laying in bed with eyes closed at this time. No needs voiced. No s/s of distress. Will continue to monitor.
[2019-08-16] VITALS (12 sets, daily range): BP systolic 112–149; BP diastolic 47–65
--- NOTE | 2019-08-16 01:00 | NUR ---
Pt is laying in bed with eyes closed. No needs voiced. No s/s of distress. Will continue to monitor.
--- NOTE | 2019-08-16 03:00 | NUR ---
Reassessment completed, see flowsheet for details. Pt is laying in bed with eyes closed. Assisted pt to the bathroom, then assisted pt back to bed. No further needs voiced. No s/s of distress noted. Will continue to monitor.
[2019-08-16 04:22] LABS: BASOPHILS 0.1 % (0-2); EOSINOPHILS 0.6 % (0-7); HEMATOCRIT 32.4 % (36.0-48.0); HEMOGLOBIN 10.9 g/dL (12-16); MCH 31.4 pg (26.0-34.0); MCHC 33.6 g/dL (31.0-37.0); MCV 93.4 fL (80.0-100.0); MEAN PLATELET VOLUME 10.7 fL (7.4-10.4); MONOCYTES 6.9 % (2-11); NEUTROPHILS 53.4 % (40-80); RBC 3.47 10x6/uL (4.00-5.40); RDW 14.8 % (11.5-14.5); WBC 15.1 10x3/uL (4.8-10.8)
[2019-08-16 04:32] LABS: PLATELET COUNT 317 10x3/uL (130-400)
[2019-08-16 04:41] LABS: ANION GAP 11.3 mmol/L (8-16); CALCIUM 8.8 mg/dL (8.5-10.1); CARBON DIOXIDE 26.5 mmol/L (21.0-32.0); PHOSPHOROUS 3.1 mg/dL (2.5-4.9); POTASSIUM - SERUM 3.8 mmol/L (3.5-5.1)
--- NOTE | 2019-08-16 05:00 | NUR ---
Pt is laying in bed with family present at bedside. No needs voiced. No s/s of distress noted. Will continue to monitor.
--- NOTE | 2019-08-16 11:18 | NUR ---
AT BEDSIDE DISCUSSING DISCHARGE. WANTS ME TO TALK WITH TO DISCUSS PREDNISONE. WILL CONTACT AND CONTINUE TO MONITOR.
[2019-08-16] MEDS ORDERED: ASPIRIN EC81 M1 PO (12:25)
[2019-08-16] MEDS ORDERED: LISINOPRIL10 MG PO (12:25)
[2019-08-16] MEDS ORDERED: PREDNISONE10 MG PO ×2 (14:55→15:17)
[2019-08-16] MEDS ORDERED: PREDNISONE20 MG PO ×2 (14:55→15:13)
[2019-08-16] MEDS ORDERED: IPRAT-ALBUT 0.5-3 ML UPD ×3 (14:56→15:18)
[2019-08-16] MEDS ORDERED: HEMOCYTE PLUS C1 CAP PO (15:09)
[2019-08-16] MEDS ORDERED: HYDRALAZINE HCL10 MG PO (15:10)
[2019-08-16] MEDS ORDERED: COLACE100 MG PO (15:12)
--- NOTE | 2019-08-16 15:23 | MORECARE ---
CASE MANAGEMENT DISCHARGE SUMMARY PATIENT: JOHNNY VALENCIA UNIT: [id number] ADM DATE: 08/09/19 AGE: 68 : 48 SEX: F ROOM/BED: [facility] AUTHOR: LELA,DOC PHYSICIAN: REFERRING PHYSICIAN: CORBY UMAÑA MD DATE OF SERVICE: 08/16/19 Discharge Plan Patient Name: JOHNNY VALENCIA Facility: [facility]:[place] : 1950 Planned Disposition: Home Anticipated Discharge Date: Discharge Date: Expected LOS: Initial Reviewer: [email or web address] Initial Review Date: 08/11/2019 Generated: 08/16/19 4:23 pm DCP- Discharge Planning Updated by [email or web address]: Julienne Hawkins on 08/12/19 4:[address] LATE ENTRY 08-12-19 Patient Name: JOHNNY VALENCIA Admission Status: Urgent Accout number: [id number] Admission Date: 08-09-2019 : 1950 Admission Diagnosis: Attending: CORBY UMAÑA Current LOS: 3 Anticipated DC Date: Planned Disposition: Home Primary Insurance: [employer] MEDICARE ADV Discharge Planning Comments: CM met with patient to complete initial dc planning assessment. CM educated patient on the CM role and verbal consent given by patient to complete assessment. Patient lives at home with her where she is independent with her care. At discharge patient plans to return home and feels this is a safe discharge. CM discussed availability of home health, rehab services, and medical equipment. Her daughter will be her milk driver home. Patient may need walk test for home 02 prior to discharge. Patient denied known discharge needs at this time. CM will continue to follow and will assist as needed with dc plans/needs. Sash Sticker: Julienne Hawkins DCPIA - Discharge Planning Initial Assessment Updated by [email or web address]: Julienne Hawkins on 08/12/19 5:00 pm * Is the patient Alert and Oriented? Yes * How many steps to enter\exit or inside your home? * PCP ANDERSON * Pharmacy [facility] * Preadmission Environment Home with Family * ADLs Independent * Equipment Walker * List name and contact numbers for known caregivers / representatives who currently or will assist patient after discharge: CORTNEY HAMMER - ARABELLA- [phone] * Verbal permission to speak to the caregivers and representatives has been obtained from the patient. Yes * Community resources currently utilized None * Additional services required to return to the preadmission environment? No * Can the patient safely return to the preadmission environment? Yes * Has this patient been hospitalized within the prior 30 days at any hospital? No External Providers External Provider: [facility] Next Contact Date: Service Request Date: Service Type: Resolution: Reviewer: Comments: Last DP export: 08/12/19 4:09 p Patient Name: JOHNNY VALENCIA Page [id number] at 1523 All edits/amendments must be made on the electronic document DICTATION DATE: 08/16/191522 TRANSPORTATION SPECIALIST: VIRGINIA 08/16/191522 RPT#: [id number] DC DATE: STATUS: ADM IN [facility] [address] [place] [address] END OF REPORT
--- NOTE | 2019-08-16 15:33 | MORECARE ---
CASE MANAGEMENT DISCHARGE SUMMARY PATIENT: JOHNNY VALENCIA UNIT: [id number] ADM DATE: 08/09/19 AGE: 68 : 48 SEX: F ROOM/BED: [facility] AUTHOR: RERE VOGEL PHYSICIAN: REFERRING PHYSICIAN: CORBY UMAÑA MD DATE OF SERVICE: 08/16/19 Discharge Plan Patient Name: JOHNNY VALENCIA Facility: [facility]:[place] : 1950 Planned Disposition: Home Anticipated Discharge Date: Discharge Date: Expected LOS: Initial Reviewer: [email or web address] Initial Review Date: 08/11/2019 Generated: 08/16/19 4:33 pm Comments DCP- Discharge Planning Updated by [email or web address]: Julienne Hawkins on 08/16/19 2:[address] Patient Name: JOHNNY VALENCIA Encounter No: [id number] : 1950 Primary Insurance: [employer] MEDICARE ADV Anticipated DC Date: Planned Disposition: Home External Planned Provider: : d/c IMM signed @ [facility] SUZAN signed for DME - [employer] called and faxed request for Nebulizer - to deliver to patient's room DCP follow-up note: Patient and family in agreement with discharge plan. No changes to plan. Case management will follow and assist as needed. Julienne Hawkins DCP- Discharge Planning Updated by [email or web address]: Julienne Hawkins on 08/12/19 4:[address] LATE ENTRY 08-12-19 Patient Name: JOHNNY VALENCIA Admission Status: Urgent Accout number: [id number] Admission Date: 08-09-2019 : 1950 Admission Diagnosis: Attending: CORBY UMAÑA Current LOS: 3 Anticipated DC Date: Planned Disposition: Home Primary Insurance: [employer] MEDICARE ADV Discharge Planning Comments: CM met with patient to complete initial dc planning assessment. CM educated patient on the CM role and verbal consent given by patient to complete assessment. Patient lives at home with her where she is independent with her care. At discharge patient plans to return home and feels this is a safe discharge. CM discussed availability of home health, rehab services, and medical equipment. Her daughter will be her diesel pile driver operator home. Patient may need walk test for home 02 prior to discharge. Patient denied known discharge needs at this time. CM will continue to follow and will assist as needed with dc plans/needs. Crossing Gateman: Julienne Hawkins DCPIA - Discharge Planning Initial Assessment Updated by [email or web address]: Julienne Hawkins on 08/12/19 5:00 pm * Is the patient Alert and Oriented? Yes * How many steps to enter\exit or inside your home? * PCP ANDERSON * Pharmacy [facility] * Preadmission Environment Home with Family * ADLs Independent * Equipment Walker * List name and contact numbers for known caregivers / representatives who currently or will assist patient after discharge: CORTNEY HAMMER - DAUGHTER- [phone] * Verbal permission to speak to the caregivers and representatives has been obtained from the patient. Yes * Community resources currently utilized None * Additional services required to return to the preadmission environment? No * Can the patient safely return to the preadmission environment? Yes * Has this patient been hospitalized within the prior 30 days at any hospital? No Coverage Notice Reviewer: [email or web address] Hawkins Notice Issued Date-Time: 08/16/2019 14:10 Notice Type: IM Discharge Notice Notice Delivered To: Patient Relationship to Patient: Self Laborer Landscape Name: Delivery Method: HAND - Hand Delivered Sushma Days: Prior Verbal Notification: Recipient Understood Notice: Yes Recipient Signature: Yes Med Rec Note Co-signed by Attending: Coverage Notice Comment: Reviewer: [id number] Hawkins Notice Issued Date-Time: 08/16/2019 14:45 Notice Type: Patient Choice Letter Notice Delivered To: Patient Relationship to Patient: Self Laborer Landscape Name: Delivery Method: HAND - Hand Delivered Sushma Days: Prior Verbal Notification: Recipient Understood Notice: Yes Recipient Signature: Yes Med Rec Note Co-signed by Attending: Coverage Notice Comment: Last DP export: 08/16/19 2:23 Patient Name: JOHNNY VALENCIA Page [id number] at 1533 All edits/amendments must be made on the electronic document DICTATION DATE: 08/16/191532 ENVIRONMENTAL MAINTENANCE WORKER: VIRGINIA 08/16/191532 RPT#: [id number] DC DATE: STATUS: ADM IN [place] [id number] [place] [address] END OF REPORT
--- NOTE | 2019-08-16 16:08 | MORECARE ---
CASE MANAGEMENT DISCHARGE SUMMARY PATIENT: JOHNNY VALENCIA UNIT: [id number] ADM DATE: 08/09/19 AGE: 68 : 48 SEX: F ROOM/BED: [facility] AUTHOR: RERE VOGEL PHYSICIAN: REFERRING PHYSICIAN: CORBY UMAÑA MD DATE OF SERVICE: 08/16/19 Discharge Plan Patient Name: JOHNNY VALENCIA Facility: [facility]:[place] : 1950 Planned Disposition: Home Anticipated Discharge Date: Discharge Date: Expected LOS: Initial Reviewer: [email or web address] Initial Review Date: 08/11/2019 Generated: 08/16/19 5:07 pm Comments DCP- Discharge Planning Updated by [email or web address]: Julienne Hawkins on 08/16/19 3:[address] Patient Name: JOHNNY VALENCIA Encounter No: [id number] : 1950 Primary Insurance: [employer] MEDICARE ADV Anticipated DC Date: Planned Disposition: Home External Planned Provider: : d/juliana IMM signed @ [facility] SUZAN signed for DME - [employer] called and faxed request for Nebulizer - to deliver to patient's room DCP follow-up note: Patient and family in agreement with discharge plan. No changes to plan. Case management will follow and assist as needed. Julienne Hawkins Appended by Julienne Hawkins on 08/16/2019 16:01 NATIONAL ACCOUNT EXECUTIVE: Patient didn't want to wait until nebulizer was delivered. CM contacted [facility] [phone] and they are to deliver Nebulizer to patient's home [address] [place] [address]. CM confirmed that [facility] [address] does have patient's RX for duoneb, prednisone and other scripts. DCP- Discharge Planning Updated by [id number]: Julienne Hawkins on 08/12/19 4:[address] LATE ENTRY 08-12-19 Patient Name: JOHNNY VALENCIA Admission Status: Urgent Accout number: [id number] Admission Date: 08-09-2019 : 1950 Admission Diagnosis: Attending: CORBY UMAÑA Current LOS: 3 Anticipated DC Date: Planned Disposition: Home Primary Insurance: [employer] MEDICARE ADV Discharge Planning Comments: CM met with patient to complete initial dc planning assessment. CM educated patient on the CM role and verbal consent given by patient to complete assessment. Patient lives at home with her where she is independent with her care. At discharge patient plans to return home and feels this is a safe discharge. CM discussed availability of home health, rehab services, and medical equipment. Her daughter will be her driver material handler home. Patient may need walk test for home 02 prior to discharge. Patient denied known discharge needs at this time. CM will continue to follow and will assist as needed with dc plans/needs. Licensed Sales Assistant: Julienne Hawkins DCPIA - Discharge Planning Initial Assessment Updated by [email or web address]: Julienne Hawkins on 08/12/19 5:00 pm * Is the patient Alert and Oriented? Yes * How many steps to enter\exit or inside your home? * PCP MONICA * Pharmacy [facility] * Preadmission Environment Home with Family * ADLs Independent * Equipment Walker * List name and contact numbers for known caregivers / representatives who currently or will assist patient after discharge: CORTNEY HAMMER - DAUGHTER- [phone] * Verbal permission to speak to the caregivers and representatives has been obtained from the patient. Yes * Community resources currently utilized None * Additional services required to return to the preadmission environment? No * Can the patient safely return to the preadmission environment? Yes * Has this patient been hospitalized within the prior 30 days at any hospital? No Coverage Notice Reviewer: [id number] Lianne Hawkins Notice Issued Date-Time: 08/16/2019 14:10 Notice Type: IM Discharge Notice Notice Delivered To: Patient Relationship to Patient: Self Cylinder Press Operator Helper Name: Delivery Method: HAND - Hand Delivered Sushma Days: Prior Verbal Notification: Recipient Understood Notice: Yes Recipient Signature: Yes Med Rec Note Co-signed by Attending: Coverage Notice Comment: Reviewer: [email or web address] Lianne Hawkins Notice Issued Date-Time: 08/16/2019 14:45 Notice Type: Patient Choice Letter Notice Delivered To: Patient Relationship to Patient: Self Cylinder Press Operator Helper Name: Delivery Method: HAND - Hand Delivered Sushma Days: Prior Verbal Notification: Recipient Understood Notice: Yes Recipient Signature: Yes Med Rec Note Co-signed by Attending: Coverage Notice Comment: Last DP export: 08/16/19 2:33 Patient Name: JOHNNY VALENCIA Page [id number] at 1608 All edits/amendments must be made on the electronic document DICTATION DATE: 08/16/191606 WARP PREPARER: VIRGINIA 08/16/191606 RPT#: [id number] DC DATE: STATUS: ADM IN [facility] [address] [place] [address] END OF REPORT
--- NOTE | 2019-08-16 17:41 | MORECARE ---
CASE MANAGEMENT DISCHARGE SUMMARY PATIENT: JOHNNY VALENCIA UNIT: [id number] ADM DATE: 08/09/19 AGE: 68 : [birth year] SEX: F ROOM/BED: [facility] AUTHOR: RERE VOGEL PHYSICIAN: REFERRING PHYSICIAN: CORBY UMAÑA MD DATE OF SERVICE: 08/16/19 Discharge Plan Patient Name: JOHNNY VALENCIA Facility: [facility]:[place] : 1950 Planned Disposition: Home Anticipated Discharge Date: Discharge Date: 08/16/2019 Expected LOS: Initial Reviewer: [email or web address] Initial Review Date: 08/11/2019 Generated: 08/16/19 6:40 pm Comments DCP- Discharge Planning Updated by [email or web address]: Julienne Hawkins on 08/16/19 3:[address] Patient Name: JOHNNY VALENCIA Encounter No: [id number] : 1950 Primary Insurance: WE[employer] MEDICARE ADV Anticipated DC Date: Planned Disposition: Home External Planned Provider: : d/c IMM signed @ [facility] SUZAN signed for DME - [facility] called and faxed request for Nebulizer - to deliver to patient's room DCP follow-up note: Patient and family in agreement with discharge plan. No changes to plan. Case management will follow and assist as needed. Julienne Hawkins Appended by Julienne Hawkins on 08/16/2019 16:01 ART SPECIALIST: Patient didn't want to wait until nebulizer was delivered. CM contacted [facility] [phone] and they are to deliver Nebulizer to patient's home [address] [place] [address]. CM [facility] [address] [facility]'s RX for duoneb, prednisone and other scripts. DCP- Discharge Planning Updated by [email or web address]: Julienne Hawkins on 08/12/19 4:[address] LATE ENTRY 08-12-19 Patient Name: JOHNNY VALENCIA Admission Status: Urgent Accout number: [id number] Admission Date: 08-09-2019 : 1950 Admission Diagnosis: Attending: CORBY UMAÑA Current LOS: 3 Anticipated DC Date: Planned Disposition: Home [facility] Discharge Planning Comments: CM met with patient to complete initial dc planning assessment. CM educated patient on the CM role and verbal consent given by patient to complete assessment. Patient lives at home with her where she is independent with her care. At discharge patient plans to return home and feels this is a safe discharge. CM discussed availability of home health, rehab services, and medical equipment. Her daughter will be her milk pickup driver home. Patient may need walk test for home 02 prior to discharge. Patient denied known discharge needs at this time. CM will continue to follow and will assist as needed with dc plans/needs. Elementary Classroom Teacher: Julienne Hawkins DCPIA - Discharge Planning Initial Assessment Updated by [email or web address]: Julienne Hawkins on 08/12/19 5:00 pm * Is the patient Alert and Oriented? Yes * How many steps to enter\exit or inside your home? * PCP ANDERSON * Pharmacy [facility] * Preadmission Environment Home with Family * ADLs Independent * Equipment Walker * List name and contact numbers for known caregivers / representatives who currently or will assist patient after discharge: CORTNEY HAMMER - ARABELLA- [phone] * Verbal permission to speak to the caregivers and representatives has been obtained from the patient. Yes * Community resources currently utilized None * Additional services required to return to the preadmission environment? No * Can the patient safely return to the preadmission environment? Yes * Has this patient been hospitalized within the prior 30 days at any hospital? No Coverage Notice Reviewer: [id number] Lianne Hawkins Notice Issued Date-Time: 08/16/2019 14:10 Notice Type: IM Discharge Notice Notice Delivered To: Patient Relationship to Patient: Self Director Of Estate Name: Delivery Method: HAND - Hand Delivered Sushma Days: Prior Verbal Notification: Recipient Understood Notice: Yes Recipient Signature: Yes Med Rec Note Co-signed by Attending: Coverage Notice Comment: Reviewer: [email or web address] Lianne Hawkins Notice Issued Date-Time: 08/16/2019 14:45 Notice Type: Patient Choice Letter Notice Delivered To: Patient Relationship to Patient: Self Director Of Estate Name: Delivery Method: HAND - Hand Delivered Sushma Days: Prior Verbal Notification: Recipient Understood Notice: Yes Recipient Signature: Yes Med Rec Note Co-signed by Attending: Coverage Notice Comment: Last DP export: 08/16/19 3:08 Patient Name: JOHNNY VALENCIA Page [id number] at 1741 All edits/amendments must be made on the electronic document DICTATION DATE: 08/16/191739 TURFGRASS TECHNICIAN: VIRGINIA 08/16/191739 RPT#: [id number] DC DATE:08/16/19 STATUS: DIS IN [facility] [address] [place] [address] END OF REPORT
== END 2019-08-16 16:08 | disposition home or self-care (01) | DRG 235 ==
LOC: D.SDCHOLD 08-09 07:30 → D.CVICU 08-09 07:52
PROVIDERS: Emergency Medicine; Internal Medicine Nephrology; Internal Medicine Pulmonary Disease; ADMIT Thoracic Surgery (Cardiothoracic Vascular Surgery); ATTEND Thoracic Surgery (Cardiothoracic Vascular Surgery)
PROC: 0211093 Bypass Coronary Artery, Two Arteries from Coronary Artery with Autologous Venous Tissue, Open Approach (ICD-10-PCS; 2019-08-09)
PROC: 06BQ0ZZ Excision of Left Saphenous Vein, Open Approach (ICD-10-PCS; 2019-08-09)
PROC: 06BP0ZZ Excision of Right Saphenous Vein, Open Approach (ICD-10-PCS; 2019-08-09)
PROC: B24BZZ4 Ultrasonography of Heart with Aorta, Transesophageal (ICD-10-PCS; 2019-08-09)
PROC: 02100Z9 Bypass Coronary Artery, One Artery from Left Internal Mammary, Open Approach (ICD-10-PCS; principal; 2019-08-09 07:30)
DX: I25.10 Atherosclerotic heart disease of native coronary artery without angina pectoris (principal); J96.91 Respiratory failure, unspecified with hypoxia; E87.2 Acidosis; F17.203 Nicotine dependence unspecified, with withdrawal; J98.11 Atelectasis; I10 Essential (primary) hypertension; J44.9 Chronic obstructive pulmonary disease, unspecified; K21.9 Gastro-esophageal reflux disease without esophagitis; R53.81 Other malaise; E78.5 Hyperlipidemia, unspecified; D64.9 Anemia, unspecified

== ENCOUNTER → 2019-09-14 08:52 | Outpatient (CLI) | payer MEDICARE ==
[~2019-09-14 08:52] MED LIST changes: +ASPIRIN EC81 M1 PO; +COLACE100 MG PO; +HEMOCYTE PLUS C1 CAP PO; +HYDRALAZINE HCL10 MG PO; +IPRAT-ALBUT 0.5-3 ML UPD; +PLAVIX75 MG PO; +PREDNISONE10 MG PO; +PREDNISONE20 MG PO
== END | disposition home or self-care (01) ==
LOC: D.CT 07-08 13:00
PROVIDERS: ATTEND Thoracic Surgery (Cardiothoracic Vascular Surgery)
DX: Z86.73 Personal history of transient ischemic attack (TIA), and cerebral infarction without residual deficits (principal)

== ENCOUNTER → 2019-09-14 10:47 | Outpatient (CLI) | payer MEDICARE ==
[2019-09-14 11:26] LABS: BASOPHILS 0.2 % (0-2); EOSINOPHILS 1.2 % (0-7); HEMATOCRIT 37.8 % (36.0-48.0); HEMOGLOBIN 12.1 g/dL (12-16); IMMATURE GRANULOCYTES 0.2 % (0-5); LYMPHOCYTES 46.8 % (15-50); MCH 31.3 pg (26.0-34.0); MCV 97.7 fL (80.0-100.0); MEAN PLATELET VOLUME 10.2 fL (7.4-10.4); MONOCYTES 6.6 % (2-11); PLATELET COUNT 262 10x3/uL (130-400); RBC 3.87 10x6/uL (4.00-5.40); RDW 15.6 % (11.5-14.5); WBC 8.6 10x3/uL (4.8-10.8)
[2019-09-14 11:30] LABS: ANION GAP 15.3 mmol/L (8-16); CALCIUM 9.5 mg/dL (8.5-10.1); CARBON DIOXIDE 24.7 mmol/L (21.0-32.0); CREATININE - SERUM 0.9 mg/dL (0.6-1.3)
== END | disposition home or self-care (01) ==
LOC: D.LAB 10:47
PROVIDERS: ATTEND Thoracic Surgery (Cardiothoracic Vascular Surgery)
DX: D64.9 Anemia, unspecified (principal); J90 Pleural effusion, not elsewhere classified

== ENCOUNTER → 2020-03-16 08:39 | Outpatient (CLI) | payer MEDICARE | END | disposition home or self-care (01) | LOC: D.LAB 08:39 → D.RT 08:39 | PROVIDERS: ATTEND Internal Medicine Pulmonary Disease | DX: Z11.59 Encounter for screening for other viral diseases (principal) ==

== ENCOUNTER → 2020-03-19 09:26 | Outpatient (CLI) | payer MEDICARE | END | disposition home or self-care (01) | LOC: D.RT 12-07 09:00 | PROVIDERS: ATTEND Internal Medicine Pulmonary Disease | DX: R06.09 Other forms of dyspnea (principal) ==

== ENCOUNTER 2020-12-21 20:15 | Outpatient (CLI) | payer OTHER | END 2020-12-21 23:59 | disposition home or self-care (01) | LOC: D.MAMMO 20:15 | PROVIDERS: ATTEND Clinical Nurse Specialist Family Health | DX: Z12.31 Encounter for screening mammogram for malignant neoplasm of breast (principal) ==